=== PATIENT | female | born 2000 | race Caucasian/White ===

== ENCOUNTER → 2024-02-13 08:03 | Outpatient (BNVA) | payer OTHER, MEDICAID, SELFPAY | PROVIDERS: Visit Provider Nurse Practitioner Women's Health | DX: Z34.90 Encounter for supervision of normal pregnancy, unspecified, unspecified trimester | CPT/HCPCS: 81025; 84702; 86850; 86900 ==

== ENCOUNTER → 2024-02-25 14:00 | Outpatient (BNVA) | payer OTHER, MEDICAID, SELFPAY | PROVIDERS: Visit Provider Nurse Practitioner Women's Health | DX: Z34.90 Encounter for supervision of normal pregnancy, unspecified, unspecified trimester (principal) | CPT/HCPCS: 76801 ==

== ENCOUNTER 2024-07-23 15:23 | Oncology outpatient (recurring) (ONCR) | payer OTHER, MEDICAID, SELFPAY ==
[2024-07-23 15:45] VITALS: BP 121/82; PULSE 111; RESP 17; TEMP 36.9
[2024-07-23] MEDS: rho(d) immune globulin 1,500 unit Syringe 1500 UNIT IM (15:46)
== END 2024-07-26 23:59 | disposition home or self-care (01) ==
LOC: ONCMED 15:24
PROVIDERS: Visit Provider Family Medicine
DX: Z79.899 Other long term (current) drug therapy (principal); Z67.11 Type A blood, Rh negative
CPT/HCPCS: 96372; J2790

== ENCOUNTER 2024-10-10 14:19 | Inpatient (IN) | payer OTHER, MEDICAID, SELFPAY ==
[2024-10-10] VITALS (45 sets, daily range): BP systolic 133–184; BP diastolic 63–113; PULSE 83–112; RESP 16; TEMP 36.6–37.1; O2SAT 97–100; BMI 35.9
[2024-10-10] MEDS: sodium chloride 0.9% 1,000 ML 999 ML IV ×2 (10:28→10:52)
[2024-10-10 11:06] LABS: Basophils # 0.1 10^3/uL (0.0-0.1); Basophils % 0.4 %; Eosinophils # 0.3 10^3/uL (0.0-0.8); Eosinophils % 2.1 %; Hematocrit 35.2 % (36-47); Lymphocytes # 1.9 10^3/uL (0.8-4.8); Lymphocytes % 14.6 %; Mean Corpuscular HGB Conc 30.1 g/dL (30-55); Mean Corpuscular Volume 76.5 fl (85-98); Monocytes # 1.1 10^3/uL (0.2-0.9); Neutrophils # 9.75 10^3/uL (1.8-7.7); Neutrophils % 74.4 %; Nucleated Red Blood Cells % 0 %; Platelet Count 419 10^3/cmm (157-399)
[2024-10-10 11:13] LABS: Amphetamines Screen Urine Negative (Negative); Barbiturates Screen Urine Negative (Negative); Benzodiazepines Screen Urine Negative (Negative); Cocaine Screen Urine Negative (Negative); Opiate Screen Urine Negative (Negative); PCP Screen Urine Negative (Negative); THC Screen Urine Positive (Negative)
[2024-10-10] MEDS: ROPivacaine syringe 100 MG/50 ML SYRINGE 10 MG EPIDURAL (11:31)
[2024-10-10] MEDS: dextrose 5%-lactated ringers 1,000 ML 125 ML IV (11:31)
--- NOTE | 2024-10-10 11:53 | P.ANESASSM_ITS ---
Pre-Anesthetic Assessment Height/Weight: Height 5 ft 5 in Pulse BP Pulse Ox 92 138/79 99 10/10/24 11:52 10/10/24 11:52 10/10/24 11:42 Preop Diagnosis: Active labor Was Beta Anneliese taken within 24 hours: N/A Was Clonidine taken within 24 hours: N/A Social No alcohol and No tobacco Exam alert, oriented x 3, clear to auscultation bilaterally and regular rate & rhythm Airway Submandibular: within normal limits Cervical ROM: within normal limits Mallampati: Class II Dentition: full Anesthetic Plan ASA status: 2 Anesthesia: Regional (specify below) Other: G2, P1 here for active labor requesting an epidural No prior issues with or baby Patient states that she only takes a vitamin and some iron pills Labs reviewed acceptable for procedure today Discussed risks with epidural placement and patient would like to proceed with this at this time Medications/Allergies Home Medications ?Medication ?Instructions ?Recorded ?Confirmed ?Last Taken ?Type PNV 153-FA 400 mcg-om3 35 mg-dha tab PO DAILY 02/13/24 03/20/24 Unknown History 25 mg-epa 5 mg-fish oil chew tablet ( Gummies) ferrous sulfate 325 mg (65 mg 325 mg PO DAILY 02/13/24 03/20/24 Unknown History iron) tablet,delayed release metoclopramide HCl 5 mg tablet 5 mg PO DAILY #30 tabs 02/13/24 03/20/24 Unknown Rx (Reglan) Allergies Allergy/AdvReac Type Severity Reaction Status Date / Time No Known Allergies Allergy Unverified 03/20/24 13:13 Current Medications Generic Name Dose Route Start Last Admin Trade Name Jesus PRN Reason Stop Dose Admin Dextrose/Lactated Ringer's 1,000 mls @ 125 mls/hr 10/10/24 10:30 10/10/24 11:31 Dextrose 5%-Lactated Ringers IV 125 mls/hr .Q8H OG Administration Ropivacaine 100 mg in 50 mls @ 10 mls/hr 10/10/24 10:30 10/10/24 11:31 Naropin Syringe EPIDURAL 10 mls/hr .Q5H OG Administration Sodium Chloride 1,000 mls @ 999 mls/hr 10/10/24 10:20 10/10/24 10:52 Sodium Chloride 0.9% IV 999 mls/hr .Q1H1M PRN Administration See label comments PFSH Anesthesia Family History Denies family history of Colon cancer Ovarian cancer Prostate cancer Diabetes Heart disease Breast cancer Hypertension Uterine cancer Thyroid disease Stroke Data Anesthesia 10/10/24 10:20 Short CBC 10/10/24 Range/Units 10:20 WBC 13.10 H (3.29-11.43) 10^3/uL Hgb 10.60 L (11.27-16.99) g/dL Hct 35.2 L (36-47) % MCV 76.5 L (85-98) fl Plt Count 419 H (157-399) 10^3/cmm Neut % (Auto) 74.4 % Neut # (Auto) 9.75 H (1.8-7.7) 10^3/uL Blood Bank 10/10/24 10:20 Blood Type A Negative Rho(D) Type Rh negative Cardiac Studies: 2 No Data to Display
--- NOTE | 2024-10-10 11:54 | P.ANES_ITS ---
Anesthesia Procedures Procedure/Date: 10/10/24 Epidural: Time Out Performed: Yes Consents Signed: Procedure Consent Consent: requested by attending/covering physician and from patient Lumbar Level: L3-L4 Epidural position: sitting Epidural procedure: sterile prep of area, 1% lidocaine to numb the area, 18 g needle, negative for paresthesia p assed, neg for paresthesia, test dose given, 1.5% xylocaine 1:200k epi, 0.2% Ropivacaine bolus ml, placed PCEA, no systemic response, sterile dressing applied, L.U.D. no apparent complications and 0.2% Ropiavacaine @ mls/hr Additional Comments: Loss received at 9 cm, epidural catheter left at 15 cm to the skin. Ropivacaine 0.2% set at 12 mL/h
--- NOTE | 2024-10-10 12:16 | PM.OPHPUD ---
Labor & Delivery H&P Update Date of Procedure: October 10, 2024 Date H&P Performed: 10/06/24 Admission Diagnosis: IUP at 40w0d gestation in active labor Preop diagnosis: Active labor Planned procedure: Expectant management of labor and delivery
[2024-10-10] MEDS: lidocaine 2% INJ 20 mL INJECTION (14:19)
[2024-10-10] MEDS: oxytocin 30 UNIT/500 ML BAG 600 UNIT IV (14:20)
--- NOTE | 2024-10-10 14:36 | P.PCNOB_ITS ---
Delivery Note: Date of delivery: October 10, 2024 Procedure: Normal spontaneous vaginal delivery with moderate shoulder dystocia Delivering Physician: Bonnie Dave MD Estimated blood loss (mL): 300 Pre-Delivery Course: The patient had routine care at [facility]. labs: Blood type A-, antibody negative, hepatitis B nonreactive, hepatitis C nonreactive, HIV nonreactive, rubella immune, RPR nonreactive, UDS positive for marijuana, she passed her glucose tolerance test, she was GBS negative. Delivery: This is a 23-year-old G2, P1 at 40 weeks 0 days gestation who presented to labor and delivery in active labor. She was GBS negative. She received an epidural for pain management. When she was 9 cm dilated she underwent artificial rupture membranes with thick meconium. Despite receiving an epidural and anesthesia reevaluation, she was in significant pain during pushing. The 's head delivered but there was a turtling and a moderate shoulder dystocia that was relieved using Shannon maneuver. The infant was delivered with both a nuchal cord and body cord. He was stunned at delivery and the cord was immediately clamped and cut he was taken to the warmer for stimulation. Cord blood was obtained. The placenta was delivered grossly intact and normal to inspection. There was a partial third-degree laceration that was sutured using 3-0 Vicryl in an interrupted fashion. The second-degree laceration was then sutured using 3-0 chromic in a running fashion. Mother was doing well after delivery. The was taken to the nursery for CPAP. History History History 2 Term 1 0 Miscarriages/Ectopic 0 Living Children 1 A&P Assessment and plan (1) Normal spontaneous vaginal delivery: PDMP PDMP Reviewed: Not Reviewed Coding Level of Care Code Acute Code for Chg Fwd Diagnoses Normal spontaneous vaginal delivery O80
[2024-10-10] MEDS: ibuprofen 800 mg tablet PO (20:17)
[2024-10-10] MEDS: docusate sodium 100 mg Capsule PO (20:17)
[2024-10-10] MEDS: benzocaine-menthol 78 gm Canister 1 SPRAY TOPICAL (20:18)
[2024-10-11 00:08] VITALS: BP 130/69; PULSE 89; RESP 16; TEMP 36.8; O2SAT 96
[2024-10-11 02:28] LABS: Hematocrit 26.5 % (36-47); Mean Corpuscular HGB Conc 30.6 g/dL (30-55); Mean Corpuscular Hemoglobin 23.2 pg (27-33); Mean Corpuscular Volume 75.9 fl (85-98); Mean Platelet Volume 10.6 fL (7.4-10.4); Platelet Count 312 10^3/cmm (157-399); Red Blood Count 3.49 10^6/uL (3.85-5.65); Red Cell Distribution Width 14.1 % (12.1-15.1); White Blood Count 12.66 10^3/uL (3.29-11.43)
[2024-10-11 02:51] LABS: HIV 1 & 2 Antibody Non-Reactive (Non-Reactiv); HIV 1 & 2 Antigen Non-Reactive (Non-Reactiv)
[2024-10-11 04:21] VITALS: BP 107/67; PULSE 82; RESP 16; TEMP 37; O2SAT 98
[2024-10-11] MEDS: ibuprofen 800 mg tablet PO (09:30)
[2024-10-11] MEDS: PRENATAL VIT NO.130/IRON/FOLIC 1 EACH TABLET PO (09:30)
[2024-10-11] MEDS: docusate sodium 100 mg Capsule PO (09:30)
[2024-10-11 09:32] VITALS: BP 135/84; PULSE 93; RESP 17; TEMP 36.6; O2SAT 98
--- NOTE | 2024-10-11 10:26 | ANE.PACU2 ---
Inpatient post-anesthesia follow up: Airway intact: Yes Vital signs: Temperature 97.8 F Pulse Rate 93 Respiratory Rate 17 Blood Pressure 135/84 Pulse Oximetry 98 Oxygen Delivery Me thod Room Air Oxygen Flow Rate Fraction of Inspir ed Oxygen Hydration adequate: Yes Nausea and vomiting: No Pain level: 1 Mental status: Baseline Epidural Start/End: Epidural Start Date: 10/10/24 Epidural Start Time: 11:30 Epidural End Date: 10/10/24 Epidural End Time: 17:45
--- NOTE | 2024-10-11 11:59 | P.DS_ITS ---
Discharge Providers Date of Admission: 10/10/24 14:19 Date of Discharge: October 11, 2024 Attending Provider at Admission: Bonnie Dave MD Attending Provider at Discharge: Bonnie Dave MD Diagnoses at Discharge Discharge Diagnosis (1) Normal spontaneous vaginal delivery: Status: Acute Reason for Visit Reason for Visit: ctx Hospital Course Hospital Course This is a 23-year-old G2 now P2 who was admitted in active labor at 40 weeks 0 days gestation. She had a normal spontaneous vaginal delivery of a viable male . The had respiratory insufficiency at and was transferred to [facility]. Mother did well . She was ambulating, tolerating a regular diet, had decreased vaginal bleeding and was comfortable with discharge home. Physical Exam Narrative: Sitting up in bed eating lunch, heart regular rate and rhythm, lungs clear to auscultation bilaterally, abdomen is soft and nontender but fundus is firm and U- 2, extremities have 1+ edema but no calf tenderness Discharge Data Studies Completed and Pending Laboratory Results WBC 12.66 10^3/uL (3.29-11.43) H 10/11/24 02:14 RBC 3.49 10^6/uL (3.85-5.65) L 10/11/24 02:14 Hgb 8.10 g/dL (11.27-16.99) L 10/11/24 02:14 Hct 26.5 % (36-47) L 10/11/24 02:14 MCV 75.9 fl (85-98) L 10/11/24 02:14 MCH 23.2 pg (27-33) L 10/11/24 02:14 MCHC 30.6 g/dL (30-55) 10/11/24 02:14 RDW 14.1 % (12.1-15.1) 10/11/24 02:14 Plt Count 312 10^3/cmm (157-399) 10/11/24 02:14 MPV 10.6 fL (7.4-10.4) H 10/11/24 02:14 Neut % (Auto) 74.4 % 10/10/24 10:20 Lymph % (Auto) 14.6 % 10/10/24 10:20 Clay % (Auto) 8.0 % 10/10/24 10:20 Eos % (Auto) 2.1 % 10/10/24 10:20 Baso % (Auto) 0.4 % 10/10/24 10:20 Neut # (Auto) 9.75 10^3/uL (1.8-7.7) H 10/10/24 10:20 Lymph # (Auto) 1.9 10^3/uL (0.8-4.8) 10/10/24 10:20 Clay # (Auto) 1.1 10^3/uL (0.2-0.9) H 10/10/24 10:20 Eos # (Auto) 0.3 10^3/uL (0.0-0.8) 10/10/24 10:20 Baso # (Auto) 0.1 10^3/uL (0.0-0.1) 10/10/24 10:20 Nucleated RBC % (auto) 0 % 10/10/24 10:20 Nucleated RBCs # 0.0 /100WBC 10/10/24 10:20 Urine Opiates Screen Negative ng/mL (Negative) 10/10/24 10:30 Ur Barbiturates Screen Negative ng/mL (Negative) 10/10/24 10:30 Ur Phencyclidine Scrn Negative ng/mL (Negative) 10/10/24 10:30 Ur Amphetamines Screen Negative ng/mL (Negative) 10/10/24 10:30 U Benzodiazepines Scrn Negative ng/mL (Negative) 10/10/24 10:30 Urine Cocaine Screen Negative ng/mL (Negative) 10/10/24 10:30 U Marijuana (THC) Screen Positive ng/mL (Negative) H 10/10/24 10:30 HIV 1&2 Ab & HIV 1 Ag Non-reactive (Non-Reactiv) 10/11/24 02:14 HIV 1&2 Antibody Non-reactive (Non-Reactiv) 10/11/24 02:14 Blood Type A Negative 10/10/24 10:20 Rho(D) Type Rh negative 10/10/24 10:20 Antibody Screen Negative 10/10/24 10:20 Vitals Last Vital Signs Temp 97.8 F 10/11/24 09:32 Pulse 93 10/11/24 09:32 Resp 17 10/11/24 09:32 BP 135/84 10/11/24 09:32 Pulse Ox 98 10/11/24 09:32 O2 Del Method Room Air 10/11/24 09:32 Discharge Plan Discharge Patient Disposition: Home Condition: Stable Prescriptions: Continued Gummies 400 mcg-35 mg- 25 mg-5 mg tablet,chewable PO DAILY ferrous sulfate 325 mg (65 mg iron) tablet,delayed release (DR/EC) 325 mg PO DAILY Discontinued metoclopramide HCl [Reglan] 5 mg tablet 5 mg PO DAILY Qty: 30 2RF Discharge Orders: Discharge Order (Routine); Ordered 10/11/24 Ordered By: Bonnie Dave Referrals: Bonnie Dave MD [Physician] - 1 month Discharge Diet: Usual diet Discharge Activity: Limit activity as instructed Patient Instructions: Depression (DC), Opioid Safety (DC), Preeclampsia and Eclampsia After Delivery (GEN), Hemorrhage (DC), OB Discharge Report, OB Food/Drug Interaction Guide, OB Care at Home, Opioid Safety, OB Vaginal Deliveries, Abnormal Bleeding Activity Restrictions/Additional Instructions: Nothing per vagina for 6 weeks Discharge Attestations Time Spent in Discharge Care*: less than 30 min Quality Metrics Clinical Quality Measures [ No reported AMI, CVA or VTE this stay] Coding Level of Care Code Acute Code for Chg Fwd Diagnoses Normal spontaneous vaginal delivery O80
[2024-10-11 12:27] VITALS: BP 132/84; PULSE 99; RESP 17; TEMP 36.7; O2SAT 98
[2024-10-11 12:44] VITALS: BP 132/84; PULSE 99; RESP 17; TEMP 36.7; O2SAT 98
== END 2024-10-11 12:44 | disposition home or self-care (01) | DRG 806 ==
LOC: OPOB 14:19 → OBGYN 14:19
PROVIDERS: Admitting Provider Family Medicine; Visit Provider Family Medicine
DX: O66.0 Obstructed labor due to shoulder dystocia (principal); O99.324 Drug use complicating childbirth; Z37.0 Single live birth; F12.90 Cannabis use, unspecified, uncomplicated; O77.0 Labor and delivery complicated by meconium in amniotic fluid; O69.81X0 Labor and delivery complicated by cord around neck, without compression, not applicable or unspecified; O70.1 Second degree perineal laceration during delivery; Z3A.40 40 weeks gestation of pregnancy
CPT/HCPCS: 36415; 59025; 59409; 80306; 85025; 85027; 86850; 86900; 87806; 96374; 99211; J2590; J2795; J3010; J7030; J7121

== ENCOUNTER 2025-04-14 00:34 | Inpatient (IN) | payer MEDICAID, SELFPAY ==
[2025-04-14] VITALS (7 sets, daily range): BP systolic 99–120; BP diastolic 59–74; PULSE 83–97; RESP 15–18; TEMP 36.9–37; O2SAT 95–100; BMI 29.0
--- NOTE | 2025-04-14 00:44 | CTR_ITS ---
PROCEDURE INFORMATION: Exam: CT Head Without Contrast Exam date and time: 04/14/2025 1:47 AM Age: 24 years old Clinical indication: Altered mental status/memory loss; Confusion or disorientation; Additional info: AMS TECHNIQUE: Imaging protocol: Computed tomography of the head without contrast. Radiation optimization: All CT scans at this facility use at least one of these dose optimization techniques: automated exposure control; mA and/or kV adjustment per patient size (includes targeted exams where dose is matched to clinical indication); or iterative reconstruction. COMPARISON: No relevant prior studies available. RADIATION DOSE METRICS: Total DLP (mGy-cm): 960.35 FINDINGS: Brain: No acute infarction, hemorrhage, mass, or extra-axial fluid collection is identified. No midline shift. Cerebral ventricles: No hydrocephalus. Paranasal sinuses: Paranasal sinuses are grossly clear. Mastoid air cells: Mastoid air cells are grossly clear. Bones: Calvarium appears intact. Soft tissues: Unremarkable. CT/CT head wo con* [id number] IMPRESSION: No acute intracranial abnormality.
--- OUTSIDE RECORDS SUMMARY | 2025-04-14 00:44 | XMS_ITS | Clinical Summary ---
Author Organization [facility] Address [address] [place] [address] Phone Care Team Providers Care Cider Press Operator Name Role Phone Unavailable Primary Care Provider Unavailabl e Allergies No known active allergies Medications vitamin-iron fumarate-folic acid 27 mg-0.8 mg Tablet Take 1 Tablet by mouth daily. Active ferrous sulfate 325 mg (65 mg iron) tablet Take 325 mg by mouth daily. Active Active Problems Problem Noted Date Diagnosed Date Diet controlled gestational diabetes mellitus (GDM) in third trimester 01/05/2023 39 weeks gestation of 01/05/2023 Vaginal delivery 01/05/2023 Encounter for induction of labor 01/05/2023 Rh negative status during in third tri mester 01/05/2023 Late care in second trimester 3 Immunizations Immunization Administration Dates Next Due (PREVNAR 20)(6 WKS UP) PNEUM OCOCCAL CONJUGATE VACCINE 20-VALENT (PCV20), POLYSACCHARIDE [id number] CONJUGATE, ADJUVANT 0.5 ML (PF) IM 01/06/2023 Influenza Seasonal Unspecified Formulation IM Family History Medical History Relation Name Comments Breast Cancer Maternal Grandmother Breast Cancer Mother Hypertension Mother Relation Name Status Comments Maternal Grandmother Mother Social History Tobacco Use Types Packs/Day Years Used Date Smoking Tobacco: Former Cigarettes Smokeless Tobacco: Never Tobacco Cessation:Counseling Given: Not Answered Alcohol Use Standard Drinks/Week Comments Yes 0 (1 standard drink = 0.6 oz pur e alcohol) occasional Comments No Sex and Gender Information Value Date Recorded Sex Assigned at Not on file Legal Sex Female 4:17 PM CDT Gender Identity Not on file Sexual Orientation Not on file Last Filed Vital Signs Vital Sign Reading Time Taken Comments Blood Pressure 117/72 05/08/2023 6:51 PM CDT Pulse 80 05/08/2023 6:51 PM CDT Temperature 36 C (96.8 F) 05/08/2023 6:51 PM CDT Respiratory Rate 20 05/08/2023 6:51 PM CDT Oxygen Saturation 99% 05/08/2023 6:51 PM CDT Inhaled Oxygen Concentration - - Weight 82.1 kg (181 lb) 05/08/2023 6:13 PM CDT Height 165.1 cm (5' 5 ) 05/08/2023 6:13 PM CDT Body Mass Index 30.12 05/08/2023 6:13 PM CDT Plan of Treatment Health Maintenance Due Date Last Done Comments HPV VACCINES (1 - 3-dose series) 2017 HEPATITIS B VACCINES (1 of 3 - 19+ 3-dose series) 2021 CHLAMYDIA SCREENING (ANNUAL) 11-24 YEARS 08/15/2023 08/15/2022 CERVICAL CANCER SCREENING 11/19/2023 HPV/Cotest (21-29) 11/19/2023 PAP SMEAR 11/19/2023 INFLUENZA VACCINE (#1) 2025 08/15/2022, 2021 DTAP/TDAP/TD VACCINES (2 - Td or Tdap) 10/20/2032 Procedures Procedure Name Priority Date/Time Associated Diagnosis Comments GC/CHLAMYDIA, GENITAL Routine 08/15/2022 from Last 3 Months or Most Recently Relevant to Health Maintenance Results * GC/CHLAMYDIA, GENITAL (08/15/2022) ABSTRACTED CHLAMYDIA DNA AMP NOT DETECTED EXTERNAL LAB ABSTRACTED GC DNA AMPLIFICATION NOT DETECTED EXTERNAL LAB Genital SWAB OF ENDOCERVIX / Unknown us Historical Provider MICRO - GEN ORDERABLES COM F inal Result EXTERNAL LAB from Last 3 Months or Most Recently Relevant to Health Maintenance Insurance [address] [id number] [facility] [employer] [facility] MEDICAID Advance Directives For more information, please contact: [phone] * Full Code (Latest Code Status on File) Date Activated Date Inactivated Comments 01/05/2023 7:05 PM 01/06/2023 8:10 PM * Full Code Date Activated Date Inactivated Comments 01/04/2023 10:11 PM 01/05/2023 7:04 PM
--- OUTSIDE RECORDS SUMMARY | 2025-04-14 00:44 | XMS_ITS | Encounter Summary ---
Author Organization [facility] Address [address] [place] [address] Care Team Providers Care Radiation Engineer Name Role Phone Unavailable Primary Care Provider Unavailabl e Encounter Details Date Type Department Care Team (Late st Contact Info) Description 10/11/2024 Maternal Documentation [facility] 5 Intensive Care [address] [place] [id number] Alexus Solomon RN Social History Tobacco Use Types Packs/Day Years Used Date Smoking Tobacco: Former Cigarettes Smokeless Tobacco: Never Alcohol Use Standard Drinks/Week Comments Yes 0 (1 standard drink = 0.6 oz pur e alcohol) occasional Comments No Sex and Gender Information Value Date Recorded Sex Assigned at Not on file Legal Sex Female 4:17 PM CDT Gender Identity Not on file Sexual Orientation Not on file documented as of this encounter Plan of Treatment Not on file documented as of this encounter Visit Diagnoses Not on filedocumented in this encounter
--- NOTE | 2025-04-14 01:24 | W.ED.PSYCHS ---
Documented by User: Yunior Ford MD 04/14/25 05:58 HPI - Psych General: Chief Complaint: Psychiatric Symptoms Stated Complaint: si Time Seen by Provider: 04/14/25 00:40 History of Present Illness: Patient is brought in by EMS with concerns for meth overdose. The patient apparently was found amidst a broken porcelain toilet and admitted to using meth. She states that people are after her and she is trying to protect herself. She became very combative and route and required Haldol and Versed. Upon arrival here she is very sleepy. She does answer some questions but still endorses the notion that people are after her and trying to kill her. She has numerous lacerations on her hands, legs, feet. Most of them are superficial. She has a full-thickness laceration between her right 4th and 5th toes, she has a 4.5 cm laceration of her left anterior lower leg, she also has multiple small lacerations on the left foot. She allowed me to anesthetize, and start to repair the wound on the left leg but then became combative and did not want me to repair them. I was able to place giuliano instead of sutures as it was quick enough to close the wound. She then would not allow me to repair any of the other wounds including the one between her toes on her right foot. Will wrap them after cleaning them well and reassess when she is sober. Will check labs, await sobriety, and reassess. Related Data Home Medications ?Medication ?Instructions ?Recorded ?Confirmed No Known Home Medications 04/14/25 04/14/25 Allergies Allergy/AdvReac Type Severity Reaction Status Date / Time No Known Allergies Allergy Unverified 03/20/24 13:13 Review of Systems General: Reports: ROS unobtainable due to mental status PFSH ED PFSH: Family History Denies family history of Colon cancer Ovarian cancer Prostate cancer Diabetes Heart disease Breast cancer Hypertension Uterine cancer Thyroid disease Stroke Physical Exam HENMT: COMMON NORMALS: normocephalic and atraumatic HEAD & SCALP: normocephalic and atraumatic Eye: COMMON NORMALS: Equal, round and reactive pupils present and EOMs intact bilaterally PUPIL: Yes Equal, round and reactive pupils present Neck/C-Spine: COMMON NORMALS: full ROM and supple Resp: COMMON NORMALS: normal respiratory effort, No retractions and No use of accessory muscles Cardio: COMMON NORMALS: regular rate and regular rhythm RATE: regular rate RHYTHM: regular rhythm GI: COMMON NORMALS: Normal to inspection, nondistended, normoactive bowel sounds present, Soft to palpation and non-tender PALPATION: Yes Soft to palpation Extremity: OTHER: numerous lacerations on her hands, legs, feet. Most of them are superficial. She has a full-thickness laceration between her right 4th and 5th toes, she has a 4.5 cm laceration of her left anterior lower leg, she also has multiple small lacerations on the left foot. Psych: OTHER: Paranoid Procedures Laceration Laceration 1: Site: lower extremity Side (If applicable): left Size (cm): 4.5 Description: linear Depth: simple, single layer Local Anesthetic: lidocaine 1% Amount of anesthesia used (mL): 10 Pre-repair: wound explored and irrigated extensively Skin layer closed with: other (14 giuliano) Course Vital Signs: Vital signs: Vital Signs Temperature 98.4 F 04/14/25 00:45 Pulse Rate 89 04/14/25 06:00 Respiratory Rate 15 04/14/25 06:00 Blood Pressure 112/68 04/14/25 06:00 Pulse Oximetry 99 04/14/25 06:00 Oxygen Delivery Me thod Room Air 04/14/25 05:00 [facility] - Psych Medical Decision Making On reassessment the patient appears to be a little more sober. She continues to have paranoid thoughts stating that she thinks she is homeless now and cannot go home because her family was abducted. She states that she knows it just feels real to her. I talked with her about her foot x-ray which interpreted by me shows a right fifth proximal phalanx fracture. We discussed the laceration between her toes and she still does not want me to repair it. Will allow her to sober up completely and reevaluate. Will sign out to the oncoming physician to consult psychiatry if she continues to be paranoid. She admits to using methamphetamine. Lab Data 04/14/25 01:27 04/14/25 01:[address] 04/14/25 00:44 IMPRESSION: No acute intracranial abnormality. Foot X-Ray 04/14/25 01:36 IMPRESSION: Acute mildly displaced proximal 5th phalanx fracture. Laboratory Results WBC 16.85 10^3/uL (3.29-11.43) H 04/14/25 01:27 RBC 4.98 10^6/uL (3.85-5.65) 04/14/25 01:27 Hgb 12.20 g/dL (11.27-16.99) 04/14/25 01:27 Hct 38.9 % (36-47) 04/14/25 01:27 MCV 78.1 fl (85-98) L 04/14/25 01:27 MCH 24.5 pg (27-33) L 04/14/25 01:27 MCHC 31.4 g/dL (30-55) 04/14/25 01:27 RDW 15.4 % (12.1-15.1) H 04/14/25 01:27 Plt Count 380 10^3/cmm (157-399) 04/14/25 01:27 MPV 9.0 fL (7.4-10.4) 04/14/25 01:27 Neut % (Auto) 85.0 % 04/14/25 01:27 Lymph % (Auto) 7.8 % 04/14/25 01:27 [place] % (Auto) 6.6 % 04/14/25 01:27 Eos % (Auto) 0.0 % 04/14/25 01:27 Baso % (Auto) 0.2 % 04/14/25 01:27 Neut # (Auto) 14.33 10^3/uL (1.8-7.7) H 04/14/25 01:27 Lymph # (Auto) 1.3 10^3/uL (0.8-4.8) 04/14/25 01:27 [place] # (Auto) 1.1 10^3/uL (0.2-0.9) H 04/14/25 01:27 Eos # (Auto) 0.0 10^3/uL (0.0-0.8) 04/14/25 01:27 Baso # (Auto) 0.0 10^3/uL (0.0-0.1) 04/14/25 01:27 Nucleated RBC % (auto) 0 % 04/14/25 01:27 Nucleated RBCs # 0.0 /100WBC 04/14/25 01:27 Sodium 140 mmol/L (136-145) 04/14/25 01:27 Potassium 3.1 mmol/L (3.5-5.1) L 04/14/25 01:27 Chloride 105 mmol/L (98-107) 04/14/25 01:27 Carbon Dioxide 19 mmol/L (22-29) L 04/14/25 01:27 Anion Gap 19.1 (5-19) H 04/14/25 01:27 BUN 17 mg/dL (6-20) 04/14/25 01:27 Creatinine 1.0 mg/dL (0.5-0.9) H 04/14/25 01:27 GFR Calculation 69.3 mL/min (90-130) L 04/14/25 01:27 Glucose 81 mg/dL (65-115) 04/14/25 01:27 Calculated Osmolality 291 mOsm/kg (285-295) 04/14/25 01:27 Calcium 9.9 mg/dL (8.5-10.5) 04/14/25 01:27 Total Bilirubin 0.7 mg/dL (0.15-1.2) 04/14/25 01:27 AST 22 U/L (0-32) 04/14/25 01:27 ALT 22 U/L (0-33) 04/14/25 01:27 Alkaline Phosphatase 149 U/L (35-105) H 04/14/25 01:27 Total Protein 8.4 g/dL (6.6-8.7) 04/14/25 01:27 Albumin 4.6 g/dL (3.5-5.2) 04/14/25 01:27 Globulin 3.8 g/dL (1.3-4.6) 04/14/25 01:27 HCG, Qual Negative (Negative) 04/14/25 01:27 Urine Color Dark yellow (Yellow) A 04/14/25 09: Urine Appearance Clear (CLEAR) 04/14/25 09: Urine pH 5.0 (5-7) 04/14/25 09:29 Ur Specific Roulette 1.031 (1.005-1.030) H 04/14/25 09: Urine Protein 1+ (Negative) A 04/14/25 09:29 Urine Glucose (UA) Negative (Normal) 04/14/25 09:29 Urine Ketones 3+ (Negative) H 04/14/25 09:29 Urine Blood Negative (Negative) 04/14/25 09:29 Urine Nitrate Negative (Negative) 04/14/25 09:29 Urine Bilirubin Negative (Negative) 04/14/25 09:29 Urine Urobilinogen 1.0 mg/dL (Negative) 04/14/25 09:29 Ur Leukocyte Esterase Negative (Negative) 04/14/25 09:29 Urine RBC 0-4 /hpf (0-2) H 04/14/25 09:29 Urine WBC 0-4 /hpf (0-5) H 04/14/25 09:29 Ur Squamous Epith Cells None /hpf (0-5) 04/14/25 09:29 Amorphous Sediment Not Reportable 04/14/25 09:29 Urine Bacteria Trace /hpf (NONE) 04/14/25 09:29 Hyaline Casts 0-4 /lpf H 04/14/25 09:29 Fine Granular Casts 0-4 /lpf H 04/14/25 09:29 Urine Mucus 2+ /hpf 04/14/25 09:29 Salicylates < 0.3 mg/dL (3-10) L 04/14/25 01:27 Urine Opiates Screen Negative ng/mL (Negative) 04/14/25 09:29 Acetaminophen < 5.0 ug/mL (10-30) L 04/14/25 01:27 Ur Barbiturates Screen Negative ng/mL (Negative) 04/14/25 09:29 Ur Phencyclidine Scrn Negative ng/mL (Negative) 04/14/25 09:29 Ur Amphetamines Screen Positive ng/mL (Negative) H 04/14/25 09:29 U Benzodiazepines Scrn Negative ng/mL (Negative) 04/14/25 09:29 Urine Cocaine Screen Negative ng/mL (Negative) 04/14/25 09:29 U Marijuana (THC) Screen Positive ng/mL (Negative) H 04/14/25 09:29 Ethyl Alcohol < 10 mg/dL (0-10) 04/14/25 01:27 Influenza A (PCR) Negative (Negative) 04/14/25 09:29 Influenza Type B (PCR) Negative (Negative) 04/14/25 09:29 RSV (PCR) Negative (Negative) 04/14/25 09:29 SARS-CoV-2 (PCR) Negative (Negative) 04/14/25 09:29 All radiology interpretation(s) finalized by discharge Discharge Plan Discharge Patient Disposition: Admitted As Inpatient Admit Provider: Riaz Rodriguez Clinical Impression: Acute psychosis, Drug-induced psychotic disorder, Methamphetamine use, Multiple lacerations, Fracture of toe of right foot Condition: Stable Sign Out Sign Out Data: Patient Sign Out occurred on 04/14/25 at 06:15. Patient's care was discussed, and care was transferred from Yunior Ford MD to Ash Tinajero DO. Coding Level of Care Code ED Donkey Ride Operator for Chg Fwd Documented by User: Ash Tinajero DO 04/14/25 16:49 HPI - Psych General: Chief Complaint: Psychiatric Symptoms Stated Complaint: si Time Seen by Provider: 04/14/25 00:40 Related Data Home Medications ?Medication ?Instructions ?Recorded ?Confirmed No Known Home Medications 04/14/25 04/14/25 Allergies Allergy/AdvReac Type Severity Reaction Status Date / Time No Known Allergies Allergy Unverified 03/20/24 13:13 PFS ED PFSH: Family History Denies family history of Colon cancer Ovarian cancer Prostate cancer Diabetes Heart disease Breast cancer Hypertension Uterine cancer Thyroid disease Stroke Course Vital Signs: Vital signs: Vital Signs Temperature 98.4 F 04/14/25 00:45 Pulse Rate 89 04/14/25 06:00 Respiratory Rate 15 04/14/25 06:00 Blood Pressure 112/68 04/14/25 06:00 Pulse Oximetry 99 04/14/25 06:00 Oxygen Delivery Me thod Room Air 04/14/25 05:00 MDM - Psych Medical Decision Making On reassessment the patient appears to be a little more sober. She continues to have paranoid thoughts stating that she thinks she is homeless now and cannot go home because her family was abducted. She states that she knows it just feels real to her. I talked with her about her foot x-ray which interpreted by me shows a right fifth proximal phalanx fracture. We discussed the laceration between her toes and she still does not want me to repair it. Will allow her to sober up completely and reevaluate. Will sign out to the oncoming physician to consult psychiatry if she continues to be paranoid. She admits to using methamphetamine. Care assumed at change of shift. Patient admits to using methamphetamine she makes comment about having been using for 5 days in a row. Reviewing the chart and noted that in September of this year she delivered a baby at our facility. I inquired with the patient she states she still has custody of the baby and is the main caregiver. She is still paranoid. She still makes comment about someone's coming after family she is convinced that if she leaves here and goes home she will go back to doing drugs in the same things will happen again. She still believes her family was abducted. There is no other family members available at this time to verify. Will make a child protective services hotline report through nursing staff regarding her drug use and her being the main caregiver. Patient be placed on a 96-hour hold due to acute psychosis secondary to drug use. Discussed Dr. Rodriguez orders written. After I talk to Dr. Rodriguez we were informed that there were no available beds that are unit Dr. Rodriguez was unaware that they were. We spoke the neck several hours trying to find an appropriate facility to transfer the patient. Later a unexpected discharge occurred and we do not have available beds. Patient will be admitted to our facility. Lab Data 04/14/25 01:27 04/14/25 01:[address] 04/14/25 00:44 IMPRESSION: No acute intracranial abnormality. Foot X-Ray 04/14/25 01:36 IMPRESSION: Acute mildly displaced proximal 5th phalanx fracture. Laboratory Results WBC 16.85 10^3/uL (3.29-11.43) H 04/14/25 01:27 RBC 4.98 10^6/uL (3.85-5.65) 04/14/25 01:27 Hgb 12.20 g/dL (11.27-16.99) 04/14/25 01:27 Hct 38.9 % (36-47) 04/14/25 01:27 MCV 78.1 fl (85-98) L 04/14/25 01:27 MCH 24.5 pg (27-33) L 04/14/25 01:27 MCHC 31.4 g/dL (30-55) 04/14/25 01:27 RDW 15.4 % (12.1-15.1) H 04/14/25 01:27 Plt Count 380 10^3/cmm (157-399) 04/14/25 01:27 MPV 9.0 fL (7.4-10.4) 04/14/25 01:27 Neut % (Auto) 85.0 % 04/14/25 01:27 Lymph % (Auto) 7.8 % 04/14/25 01:27 Providence % (Auto) 6.6 % 04/14/25 01:27 Eos % (Auto) 0.0 % 04/14/25 01:27 Baso % (Auto) 0.2 % 04/14/25 01:27 Neut # (Auto) 14.33 10^3/uL (1.8-7.7) H 04/14/25 01:27 Lymph # (Auto) 1.3 10^3/uL (0.8-4.8) 04/14/25 01:27 Providence # (Auto) 1.1 10^3/uL (0.2-0.9) H 04/14/25 01:27 Eos # (Auto) 0.0 10^3/uL (0.0-0.8) 04/14/25 01:27 Baso # (Auto) 0.0 10^3/uL (0.0-0.1) 04/14/25 01:27 Nucleated RBC % (auto) 0 % 04/14/25 01:27 Nucleated RBCs # 0.0 /100WBC 04/14/25 01:27 Sodium 140 mmol/L (136-145) 04/14/25 01:27 Potassium 3.1 mmol/L (3.5-5.1) L 04/14/25 01:27 Chloride 105 mmol/L (98-107) 04/14/25 01:27 Carbon Dioxide 19 mmol/L (22-29) L 04/14/25 01:27 Anion Gap 19.1 (5-19) H 04/14/25 01:27 BUN 17 mg/dL (6-20) 04/14/25 01:27 Creatinine 1.0 mg/dL (0.5-0.9) H 04/14/25 01:27 GFR Calculation 69.3 mL/min (90-130) L 04/14/25 01:27 Glucose 81 mg/dL (65-115) 04/14/25 01:27 Calculated Osmolality 291 mOsm/kg (285-295) 04/14/25 01:27 Calcium 9.9 mg/dL (8.5-10.5) 04/14/25 01:27 Total Bilirubin 0.7 mg/dL (0.15-1.2) 04/14/25 01:27 AST 22 U/L (0-32) 04/14/25 01:27 ALT 22 U/L (0-33) 04/14/25 01:27 Alkaline Phosphatase 149 U/L (35-105) H 04/14/25 01:27 Total Protein 8.4 g/dL (6.6-8.7) 04/14/25 01:27 Albumin 4.6 g/dL (3.5-5.2) 04/14/25 01:27 Globulin 3.8 g/dL (1.3-4.6) 04/14/25 01:27 HCG, Qual Negative (Negative) 04/14/25 01: Urine Color Dark yellow (Yellow) A 04/14/25 09: Urine Appearance Clear (CLEAR) 04/14/25 09: Urine pH 5.0 (5-7) 04/14/25 09: Ur Specific Roulette 1.031 (1.005-1.030) H 04/14/25 09:29 Urine Protein 1+ (Negative) A 04/14/25 09: Urine Glucose (UA) Negative (Normal) 04/14/25 09: Urine Ketones 3+ (Negative) H 04/14/25 09: Urine Blood Negative (Negative) 04/14/25 09: Urine Nitrate Negative (Negative) 04/14/25 09: Urine Bilirubin Negative (Negative) 04/14/25 09: Urine Urobilinogen 1.0 mg/dL (Negative) 04/14/25 09:29 Ur Leukocyte Esterase Negative (Negative) 04/14/25 09:29 Urine RBC 0-4 /hpf (0-2) H 04/14/25 09:29 Urine WBC 0-4 /hpf (0-5) H 04/14/25 09:29 Ur Squamous Epith Cells None /hpf (0-5) 04/14/25 09:29 Amorphous Sediment Not Reportable 04/14/25 09:29 Urine Bacteria Trace /hpf (NONE) 04/14/25 09:29 Hyaline Casts 0-4 /lpf H 04/14/25 09:29 Fine Granular Casts 0-4 /lpf H 04/14/25 09:29 Urine Mucus 2+ /hpf 04/14/25 09:29 Salicylates < 0.3 mg/dL (3-10) L 04/14/25 01:27 Urine Opiates Screen Negative ng/mL (Negative) 04/14/25 09:29 Acetaminophen < 5.0 ug/mL (10-30) L 04/14/25 01:27 Ur Barbiturates Screen Negative ng/mL (Negative) 04/14/25 09:29 Ur Phencyclidine Scrn Negative ng/mL (Negative) 04/14/25 09:29 Ur Amphetamines Screen Positive ng/mL (Negative) H 04/14/25 09:29 U Benzodiazepines Scrn Negative ng/mL (Negative) 04/14/25 09:29 Urine Cocaine Screen Negative ng/mL (Negative) 04/14/25 09:29 U Marijuana (THC) Screen Positive ng/mL (Negative) H 04/14/25 09:29 Ethyl Alcohol < 10 mg/dL (0-10) 04/14/25 01:27 Influenza A (PCR) Negative (Negative) 04/14/25 09:29 Influenza Type B (PCR) Negative (Negative) 04/14/25 09:29 RSV (PCR) Negative (Negative) 04/14/25 09:29 SARS-CoV-2 (PCR) Negative (Negative) 04/14/25 09:29 Discharge Plan Discharge Patient Disposition: Admitted As Inpatient Admit Provider: Riaz Rodriguez Clinical Impression: Acute psychosis, Drug-induced psychotic disorder, Methamphetamine use, Multiple lacerations, Fracture of toe of right foot Condition: Stable Sign Out Sign Out Data: Patient Sign Out occurred on 04/14/25 at 06:15. Patient's care was discussed, and care was transferred from Yunior Ford MD to Ash Tinajero DO. Coding Level of Care Code ED Donkey Ride Operator for Lexie Victoria
[2025-04-14 01:33] LABS: Hematocrit 38.9 % (36-47); Hemoglobin 12.20 g/dL (11.27-16.99); Mean Corpuscular HGB Conc 31.4 g/dL (30-55); Mean Corpuscular Hemoglobin 24.5 pg (27-33); Mean Corpuscular Volume 78.1 fl (85-98); Nucleated Red Blood Cells % 0 %; Platelet Count 380 10^3/cmm (157-399); Red Blood Count 4.98 10^6/uL (3.85-5.65); White Blood Count 16.85 10^3/uL (3.29-11.43)
--- NOTE | 2025-04-14 01:36 | XRR_ITS ---
PROCEDURE INFORMATION: Exam: XR Right Foot Exam date and time: 04/14/2025 1:39 AM Age: 24 years old Clinical indication: Injury or trauma; Fall; Blunt trauma; Foot; Right; Additional info: Trauma, uknown origin TECHNIQUE: Imaging protocol: Radiologic exam of the right foot. Views: 3 or more views. COMPARISON: No relevant prior studies available. FINDINGS: Bones/joints: Acute, mildly displaced fracture of the proximal metaphysis of the proximal phalanx of the 5th toe. No other fractures are apparent. Soft tissues: Mild soft tissue fullness about the forefoot. XR/XR foot RT min 3V* [id number] IMPRESSION: Acute mildly displaced proximal 5th phalanx fracture.
[2025-04-14 01:50] LABS: Alanine Aminotransferase 22 U/L (0-33); Albumin Level 4.6 g/dL (3.5-5.2); Alkaline Phosphatase 149 U/L (35-105); Anion Gap 19.1 (5-19); Aspartate Amino Transferase 22 U/L (0-32); Blood Urea Nitrogen 17 mg/dL (6-20); Calcium 9.9 mg/dL (8.5-10.5); Carbon Dioxide 19 mmol/L (22-29); Chloride 105 mmol/L (98-107); Globulin 3.8 g/dL (1.3-4.6); Glucose 81 mg/dL (65-115); Osmolality Calculated 291 mOsm/kg (285-295); Potassium 3.1 mmol/L (3.5-5.1); Sodium 140 mmol/L (136-145); Total Protein 8.4 g/dL (6.6-8.7)
[2025-04-14 01:55] LABS: Acetaminophen < 5.0 ug/mL (10-30); Alcohol Level < 10 mg/dL (0-10); Creatinine Clr Calc Pharmacy 98.2466; Salicylate < 0.3 mg/dL (3-10)
[2025-04-14] MEDS: tetanus-diphtheria tox (adult) 0.5 mL SDV IM (06:44)
--- NOTE | 2025-04-14 07:59 | PC.NURSE ---
Hotline report completed [facility]- [phone] Report Number- [id number]
[2025-04-14 08:20] LABS: HCG, Serum Qual Negative (Negative)
[2025-04-14 10:05] LABS: Glucose Urine UA Negative (Normal); Nitrate Urine Negative (Negative)
[2025-04-14 10:06] LABS: PCP Screen Urine Negative (Negative)
[2025-04-14 10:21] LABS: Add Urine Microscopic? YES; Specific Gravity, Urine 1.031 (1.005-1.030)
--- NOTE | 2025-04-14 10:26 | PC.NURSE ---
96 hr rights reviewed with pt @0800 with assistance of [facility] account officer Dwight Patton All education reviewed with pt at this time. Pt verbalized understanding to hold parameters when asked. Pt copy was left with pt. Declined beverage and snack when asked. No further needs at this time.
[2025-04-14 10:37] LABS: Respiratory Syncytial Virus Ce NEGATIVE (Negative); SARS-CoV-2 PCR NEGATIVE (Negative)
--- NOTE | 2025-04-14 11:31 | PC.NURSE ---
spoke with Steph at [facility] --declining d/t behavioral and medical
--- NOTE | 2025-04-14 15:38 | PC.NURSE ---
CPS update I was notified at 1315 from the quality process lead at [facility] that they had not been able to locate the children at that point. She asked if the father of the baby/patient's significant other was at the hospital visiting the patient. I was unable to locate the FOB/significant other in the ED. I went into the patient's room at this time and introduced myself. The patient was appropriate and answered all of my questions. I let her know that CPS had not been able to locate the FOB or the children to make sure they were safe. The patient became tearful. The patient gave me a new number for the FOB [phone] and verified that the address that I had was correct. She also gave me the name and address of an uncle- well a friend Gavin Carballo [address] [place] [address]. During the time that I was in talking to the patient, her sister called the floor wanting to know an update on the patient. She left her phone number. I contacted CPS and gave them all of this information to help locate the children and FOB. I notified RD ( medical office receptionist) of the situation and that I would like for him to help me contact law enforcement to make them aware of the concern. He notified the [facility]'s Office at [phone]. Dispatch stated they would relay the message to a deputy to have them call us back. At approximately 1405 I was notified by RD that the [employer] called back and they were going to go out and do a Wellness check and try to help locate the children and FOB. At approximately 1540 I was notified from CPS that the children were located. Primary nurse, medical office receptionist, Tube Depatcher, and Providers were updated.
--- NOTE | 2025-04-14 20:00 | PC.NURSE ---
WOUNDS LAST EVENING, DR THORNTON SPOKE TO DR ZAPIEN WHILE ADDRESSING PATIENTS BILATERAL LEG/FOOT WOUNDS. DR. ZAPIEN PLANS ON SEEING THIS PATIENT IN THE AM.
[2025-04-14] MEDS: mupirocin oint 22 gm 1 APPLIC TOPICAL ×2 (21:02→21:04)
--- NOTE | 2025-04-15 05:19 | PC.NURSE ---
BLE WOUNDS DR THORNTON EXAMINED AND DRESSED PATIENTS BILATERAL FOOT AND LEFT KNEE WOUNDS. CALL WAS PLACED TO DR ZAPIEN FOR CONSULT ON SAME WOUNDS. DR ZAPIEN AGREED TO COME THIS AM TO EXAMINE PATIENTS WOUNDS HIMSELF.
[2025-04-15 06:00] VITALS: BP 103/63; PULSE 96; RESP 15; TEMP 37.1; O2SAT 99
--- NOTE | 2025-04-15 06:58 | PM.CONSULT ---
Providers/Reason For Consult Consulting Physician/Specialty*: Nico Krause D.P.M./podiatry Reason for Consult*: Laceration bilateral lower extremity. Attending Physician: Riaz Rodriguez MD History of Present Illness History of Present Illness Dionne Mendoza is a 24 year old female admitted to Neuropsych Unit for a 96-hour hold from the emergency department for drug-induced psychotic disorder, patient admits to methamphetamine use 5 days in a row and was found to have multiple lacerations of her lower extremities from a porcelain toilet that was broken down she was found laying in ceramic shards, also found to have a fracture of the right fifth toe proximal phalanx. Review of Systems Const: Denies: fever(s), chills or fatigue Eyes: Denies: change in vision Card: Denies: chest pain, palpitations or dyspnea on exertion Resp: Denies: dyspnea or productive cough GI: Denies: abdominal pain, nausea, vomiting, diarrhea or constipation Musc: Reports: extremity pain (Painful lesions on the bottom of the feet) Skin/Breast: Reports: skin tenderness (Porokeratosis) and lesions (Porokeratosis) Neuro: Reports: difficulty walking (Pain with weightbearing at porokeratosis); Denies: numbness in extremities Psych: Denies: suicidal ideation or homicidal ideation Medications/Allergies Home Medications ?Medication ?Instructions ?Recorded ?Confirmed ?Last Taken ?Type No Known Home Medications 04/14/25 04/14/25 Unknown History Allergies Allergy/AdvReac Type Severity Reaction Status Date / Time No Known Allergies Allergy Unverified 03/20/24 13:13 Current Medications Generic Name Dose Route Start Last Admin Trade Name Jesus PRN Reason Stop Dose Admin Cephalexin HCl 500 mg 04/14/25 17:55 04/14/25 21:05 Cephalexin 500 Mg Capsule PO 04/20/25 21:00 500 mg TID OG Administration Protocol Mupirocin 1 applic 04/14/25 17:55 04/14/25 21:04 Mupirocin Oint 22 Gm TOPICAL 1 applic BID OG Administration PFSH Acute PFSH: Family History Denies family history of Colon cancer Ovarian cancer Prostate cancer Diabetes Heart disease Breast cancer Hypertension Uterine cancer Thyroid disease Stroke Vitals/I&O/Wt Last Vital Signs Temp 98.8 F 04/15/25 06:00 Pulse 96 04/15/25 06:00 Resp 15 04/15/25 06:00 BP 103/63 04/15/25 06:00 Pulse Ox 99 04/15/25 06:00 O2 Del Method Room Air 04/14/25 17:57 Weight last 48 hrs Weight 185 lb Physical Exam Narrative: GENERAL: Patient is alert and oriented ?3 and in no acute distress. The following is a focused bilateral lower extremity exam. VASCULAR: Dorsalis pedis palpable bilaterally. Posterior tibial arteries palpable. Capillary refill time less than 3 seconds to the distal hallux bilaterally. Calf is supple and nontender proximally and distally. Pedal hair growth present. NEUROLOGICAL: Protective sensation intact 10/10 sites, tested with [place] monofilament to bilateral feet. DERMATOLOGICAL: Excoriations to the bilateral lower extremities with abrasions at the dorsum of the left foot and anterior ankle that are well-approximated with skin adhesive and Dermabond, no periwound erythema warmth or purulent drainage at the excoriations and abrasions, skin tear at the right fourth webspace, ecchymosis right fifth toe. No erythema warmth or drainage at the right fourth webspace, webspaces clean and dry. MUSCULOSKELETAL: Tenderness to palpation right fifth toe, no gross deformity or acute dislocation at the right fifth toe able to dorsiflex and plantarflex toes 1 through 5 bilaterally on command. Muscle strength +5 in all 3 planes bilateral foot and ankle pain-free without guarding. Data 04/14/25 01:27 04/14/25 01:27 A&P Assessment and plan 1. Acute psychosis: 2. Drug-induced psychotic disorder with complication: 3. Methamphetamine use disorder, severe, dependence: 4. Multiple lacerations: 5. Open fracture of phalanx of right fifth toe, initial encounter: Plan: 24-year-old female with drug-induced psychosis secondary to methamphetamine abuse presents with abrasions and lacerations bilateral lower extremity of most concern is her right fifth toe proximal phalanx fracture minimally displaced however there is a skin tear within the fourth webspace right foot which classifies this as a open fracture. The webspace is clean, dry, no erythema warmth or drainage. Patient receiving cephalexin 500 mg 3 times daily. No clinical signs of infection. Right fifth toe was quinten splinted to the 4th and 3rd toe. Remaining abrasions and lacerations are well-healing without clinical signs of infection. Patient may be weightbearing as tolerated. Will follow-up outpatient for continued fracture care and monitoring of wounds, will schedule follow-up in podiatry clinic next week or at tertiary center depending on where she is transferred. Podiatry will follow PDMP PDMP Reviewed: Not Reviewed Coding Level of Care Code Acute Code for [facility] Fwd Diagnoses Acute psychosis F23 Drug-induced psychotic disorder with complication F19.959 Complication of substance-induced condition: with unspecified complication Methamphetamine use disorder, severe, dependence F15.20 Multiple lacerations T07.XXXA Open fracture of phalanx of right fifth toe, initial encounter S92.501B Encounter type: initial encounter
[2025-04-15] MEDS: mupirocin oint 22 gm 1 APPLIC TOPICAL ×2 (08:45→17:45)
[2025-04-15] MEDS: cetylpyridinium Lozenge 1 EACH MUCOUS MEM (10:38)
--- NOTE | 2025-04-15 13:29 | P.NPUHP_ITS ---
Providers/Chief Complaint 2 Admitting Physician: Riaz Rodriguez MD Chief Complaint: si HPI NPU History of Present Illness Dionne Mendoza is a 24 year old female who presented to the emergency department with the following report: Chief Complaint: Psychiatric Symptoms Stated Complaint: si Time Seen by Provider: 04/14/25 00:40 History of Present Illness: Patient is brought in by EMS with concerns for meth overdose. The patient apparently was found amidst a broken porcelain toilet and admitted to using meth. She states that people are after her and she is trying to protect herself. She became very combative and route and required Haldol and Versed. Upon arrival here she is very sleepy. She does answer some questions but still endorses the notion that people are after her and trying to kill her. She has numerous lacerations on her hands, legs, feet. Most of them are superficial. She has a full-thickness laceration between her right 4th and 5th toes, she has a 4.5 cm laceration of her left anterior lower leg, she also has multiple small lacerations on the left foot. She allowed me to anesthetize, and start to repair the wound on the left leg but then became combative and did not want me to repair them. I was able to place giuliano instead of sutures as it was quick enough to close the wound. She then would not allow me to repair any of the other wounds including the one between her toes on her right foot. Will wrap them after cleaning them well and reassess when she is sober. Will check labs, await sobriety, and reassess. She was admitted to the neuropsychiatric unit for definitive treatment of those issues. She is unknown to [facility] psychiatry through inpatient or outpatient services. She presented to the emergency department with psychosis and a UDS positive for amphetamines and cannabis. She reported a history of having some medications for depression and anxiety in the past but cannot recall the names. She reports she had not been on medication in part for the fact that she had been . She reports having past inpatient hospitalization as a juvenile. She denies having significant mental health treatment in her life. She endorsed having no nicotine or alcohol use on a regular basis but some limited use in the past. She reports that she is a significant user of cannabis and has had sporadic methamphetamine use and addiction. She acknowledges that the reason why she is here now is secondary to her use that spanned several days where she did not sleep and then as the sleep worsen she started having odd thoughts and ended up going in the bathroom and kicking her toilet possibly breaking her toe and smashing the toilet which ended up with her getting lacerations on her leg and foot. She was brought to the hospital secondary to these behaviors and was having psychosis in the emergency department but this psychosis has appeared to resolve per staff reports and direct observation. She denies any history of sober living treatment. She denies any charges related to her use or otherwise. She reports that her depression and anxiety went back to her childhood. She reports that she does not know a lot about her family history because she was in an orphanage with her sister and eventually adopted when she was about 7 and she only knows that her mother had significant drinking problems. She reports that she has had depression with passive in which she had suicidal thoughts but not currently reports that if anything her anxiety is a greater difficulty now but even those things are mostly under control as long as she is not using. She reports that the use of cannabis became a significant tool for her to manage emotional symptoms. She endorses that there was likely neglect which led to her going to the orphanage but once she got to her adoptive mother there was no emotional physical or sexual abuse though she reports her relationship with her mother is challenging at best. She was adopted along with her sister. She did not graduate from high school and reports that she had some learning challenges and did have an IEP in school. She endorses being heterosexual with her longest relationship being about 3 years. 3-1/2 years. She reports that she has never been officially but that her significant other/boyfriend/fianc? is the father of both her children and 2-1/2-year-old and a 6-month-old. They are both vaginal deliveries. She has never been in the endorses being a Muslim but not active. She denies significant work history and lives in an apartment with her children and significant other. She denies any legal issues. She denies any significant medical issues other than having 2 pregnancies and deliveries. We discussed the risks, benefits and alternatives of monitoring her against the backdrop of the 96-hour hold, considering medications for depression, anxiety or cravings continuing to address her physical needs from the cuts having gotten a podiatry consult due to some of the injuries to her feet, and evaluating for safety prior to discharge she understood and agreed to proceed as is documented in this note. Meds NPU Home Medications ?Medication ?Instructions ?Recorded ?Confirmed ?Last Taken ?Type No Known Home Medications 04/14/2503/27 Unknown History Allergies Allergy/AdvReac Type Severity Reaction Status Date / Time No Known Allergies Allergy Unverified 03/20/24 13:13 PFSH NPU 2 PFSH: Family History Denies family history of Colon cancer Ovarian cancer Prostate cancer Diabetes Heart disease Breast cancer Hypertension Uterine cancer Thyroid disease Stroke Mental Status Exam 2 MSE Comments: This is an obese white female in hospital scrubs with limited grooming but adequate eye contact. No abnormal movements except for mild psychomotor retardation. Cooperative with exam in mild to moderate distress. Speech was decreased rate and volume. Mood described as anxious but a little better, affect congruent. Thought process linear and mostly organized. Thought content: Patient denied suicidal or homicidal ideation, there were no delusions reported or noted, she denied any auditory or visual hallucinations. Attention and concentration appeared intact and memory was mostly reliable but no more formally tested. She is alert and oriented x 3. Insight, judgment and impulse control were limited versus impaired. Vitals/I&O/Wt Last Vital Signs Temp 98.8 F 04/15/25 06:00 Pulse 96 04/15/25 06:00 Resp 15 04/15/25 06:00 BP 103/63 04/15/25 06:00 Pulse Ox 99 04/15/25 06:00 O2 Del Method Room Air 04/14/25 17:57 Weight last 48 hrs Weight 83.915 kg Data NPU 04/14/25 01:27 04/14/25 01:27 A&P Assessment and plan 1. Acute psychosis: 2. Drug-induced psychotic disorder: 3. Methamphetamine use disorder, severe, dependence: 4. Cannabis use disorder: 5. Generalized anxiety disorder: 6. Major depressive disorder: Plan: This is a 24-year-old white female with a long history of mental health and some addiction issues who presents with active addiction specifically marijuana and methamphetamines who had a recent string of methamphetamine use that led to her not sleeping for several days and having a psychotic event that ended in her breaking a toilet and cutting herself pretty substantially requiring giuliano and laceration repair. The psychosis seem to resolve quickly and she has a history of depression and anxiety and is exploring what level of treatment she is willing to invest in. 1. Continue current medication. Consider medication for anxiety, depression and/or cravings. 2. Continue every 15 minute checks for safety. 3. Encourage individual, group and milieu therapy. 4. Encourage sober living treatment after discharge at the highest level care to which she is willing to commit. 5. Obtain collateral information. 6. Evaluate against the backdrop of the 96-hour hold. PDMP PDMP Reviewed: Not Reviewed Involuntary Hold Information 2 Hold Status: Legal Status: 96 Hour Hold Date/Time Hold Expires: @[id number] Attestations NPU 2 Medical Necessity Statement*: Inpatient hospitalization is medically necessary and the clinically appropriate intervention at this time. We will initiate/monitor medications and make changes as indicated. Patient will be in the hospital for over 2 midnights. Likely length of stay 3 to 5 days. Coding Level of Care Code Acute Code for [facility] Fwd Diagnoses Acute psychosis F23 Drug-induced psychotic disorder F19.959 Methamphetamine use disorder, severe, dependence F15.20 Cannabis use disorder F12.90 Generalized anxiety disorder F41.1 Major depressive disorder F32.9
[2025-04-15 14:00] VITALS: BP 105/59; PULSE 99; RESP 16; TEMP 37; O2SAT 99
[2025-04-15 19:34] VITALS: BP 108/74; PULSE 93; RESP 18; TEMP 36.4; O2SAT 96
--- NOTE | 2025-04-16 03:30 | PC.NURSE ---
Pt asked this nurse if we could find out if her was being transferred out of ER. This nurse spoke with Abdifatah in ER and asked if pt was on her husbands release of information form. Abdifatah stated that he would have Meredith from registration call back. Meredith from Registration called this nurse and stated that pt was on her husbands release of information form.
[2025-04-16 06:00] VITALS: BP 109/70; PULSE 93; RESP 16; TEMP 37; O2SAT 98
[2025-04-16 13:52] VITALS: BP 125/85; PULSE 83; RESP 16; TEMP 36.6; O2SAT 99
--- NOTE | 2025-04-16 15:32 | P.NPUPN_ITS ---
Subjective NPU 2 Subjective: Patient presented today reporting she is not doing well. She is really struggling with the situation regarding her children and feeling ashamed and missing them. We discussed the importance of doing what she can do now that she is here in the situation and that the main thing she needs to do is focus on her treatment and do the things that are necessary to be in a place where someone might be open to giving her a chance to reconnect with her children. She is working with the social work team on evaluating different options for inpatient rehab. He Mental Status Exam 2 MSE Comments: This is an obese white female in hospital scrubs with limited grooming but adequate eye contact. No abnormal movements except for mild psychomotor retardation. Cooperative with exam in mild to moderate distress. Speech was decreased rate and volume. Mood described as anxious and ashamed, affect congruent and tearful. Thought process linear and mostly organized. Thought content: Patient denied suicidal or homicidal ideation, there were no delusions reported or noted, she denied any auditory or visual hallucinations. Attention and concentration appeared intact and memory was mostly reliable but no more formally tested. She is alert and oriented x 3. Insight, judgment and impulse control were limited versus impaired. Vitals/I&O/Wt Last Vital Signs Temp 98 F 04/16/25 13:52 Pulse 83 04/16/25 13:52 Resp 16 04/16/25 13:52 BP 125/85 04/16/25 13:52 Pulse Ox 99 04/16/25 13:52 O2 Del Method Room Air 04/16/25 13:52 Data NPU 04/14/25 01:27 04/14/25 01:27 A&P Assessment and plan 1. Acute psychosis: 2. Drug-induced psychotic disorder: 3. Methamphetamine use disorder, severe, dependence: 4. Cannabis use disorder: 5. Generalized anxiety disorder: 6. Major depressive disorder: Plan: This is a 24-year-old white female with a long history of mental health and some addiction issues who presents with active addiction specifically marijuana and methamphetamines who had a recent string of methamphetamine use that led to her not sleeping for several days and having a psychotic event that ended in her breaking a toilet and cutting herself pretty substantially requiring giuliano and laceration repair. The psychosis seem to resolve quickly and she has a history of depression and anxiety and is exploring what level of treatment she is willing to invest in. 1. Continue current medication. Consider medication for anxiety, depression and/or cravings. 2. Continue every 15 minute checks for safety. 3. Encourage individual, group and milieu therapy. 4. Encourage sober living treatment after discharge at the highest level care to which she is willing to commit. We discussed the critical need for her to invest in inpatient rehab to get a handle on her current situation and to begin rebuilding her image in the eyes of the court for any hopes of her unifying with children 5. Obtain collateral information. 6. Evaluate against the backdrop of the 96-hour hold. PDMP PDMP Reviewed: Not Reviewed Involuntary Hold Information 2 Hold Status: Legal Status: 96 Hour Hold Date/Time Hold Expires: @[id number] Attestations NPU 2 Medical Necessity Statement*: Inpatient hospitalization is medically necessary and the clinically appropriate intervention at this time. We will initiate/monitor medications and make changes as indicated. Likely length of stay 3 to 5 days. Coding Level of Care Code Acute Code for [facility] Diagnoses Acute psychosis F23 Drug-induced psychotic disorder F19.959 Methamphetamine use disorder, severe, dependence F15.20 Cannabis use disorder F12.90 Generalized anxiety disorder F41.1 Major depressive disorder F32.9
[2025-04-16] MEDS: mupirocin oint 22 gm 1 APPLIC TOPICAL (19:04)
[2025-04-16 20:15] VITALS: BP 107/76; PULSE 99; RESP 18; TEMP 37.3; O2SAT 98
[2025-04-17 06:00] VITALS: BP 117/80; PULSE 94; RESP 17; TEMP 37.3; O2SAT 98
[2025-04-17] MEDS: mupirocin oint 22 gm 1 APPLIC TOPICAL (10:43)
--- NOTE | 2025-04-17 12:09 | PC.NURSE ---
Patient up at nurses station states I feel like I'm hyperventilating. Patient assist to bedroom and encouraged to slow down breathing and verbalize her feelings. Patient states that she do not want to feel these feelings and I want to give my kids away for a while. Patient is tearful and anxious. Patient given Zyprexa 5 mg sl. Sitter at bedside.
--- NOTE | 2025-04-17 13:45 | P.NPUPN_ITS ---
Subjective NPU 2 Subjective: Patient presented today reporting that she is really having a tough time about the situation related to her daughter. Actually both of her children. She reports that she knows she needs to focus on what she can do but right now she is being overwhelmed by the thoughts of the significance of the mistake that she has made. She continue to work with the social work team attempting to find sober living treatment options. Mental Status Exam 2 MSE Comments: This is an obese white female in hospital scrubs with limited grooming but adequate eye contact. No abnormal movements except for mild psychomotor retardation. Cooperative with exam in mild to moderate distress. Speech was decreased rate and volume. Mood described as anxious and ashamed, affect congruent and tearful. Thought process linear and mostly organized. Thought content: Patient denied suicidal or homicidal ideation, there were no delusions reported or noted, she denied any auditory or visual hallucinations. Attention and concentration appeared intact and memory was mostly reliable but no more formally tested. She is alert and oriented x 3. Insight, judgment and impulse control were limited versus impaired. Vitals/I&O/Wt Last Vital Signs Temp 99.1 F 04/17/25 06:00 Pulse 94 04/17/25 06:00 Resp 17 04/17/25 06:00 BP 117/80 04/17/25 06:00 Pulse Ox 98 04/17/25 06:00 O2 Del Method Room Air 04/17/25 06:00 Data NPU 04/14/25 01:27 04/14/25 01:27 A&P Assessment and plan 1. Acute psychosis: 2. Drug-induced psychotic disorder: 3. Methamphetamine use disorder, severe, dependence: 4. Cannabis use disorder: 5. Generalized anxiety disorder: 6. Major depressive disorder: Plan: This is a 24-year-old white female with a long history of mental health and some addiction issues who presents with active addiction specifically marijuana and methamphetamines who had a recent string of methamphetamine use that led to her not sleeping for several days and having a psychotic event that ended in her breaking a toilet and cutting herself pretty substantially requiring giuliano and laceration repair. The psychosis seem to resolve quickly and she has a history of depression and anxiety and is exploring what level of treatment she is willing to invest in. 1. Continue current medication. Consider medication for anxiety, depression and/or cravings. 2. Continue every 15 minute checks for safety. 3. Encourage individual, group and milieu therapy. 4. Encourage sober living treatment after discharge at the highest level care to which she is willing to commit. We discussed the critical need for her to invest in inpatient rehab to get a handle on her current situation and to begin rebuilding her image in the eyes of the court for any hopes of her unifying with children 5. Obtain collateral information. 6. Evaluate against the backdrop of the 96-hour hold. PDMP PDMP Reviewed: Not Reviewed Involuntary Hold Information 2 Hold Status: Legal Status: 96 Hour Hold Date/Time Hold Expires: @[id number] Attestations NPU 2 Medical Necessity Statement*: Inpatient hospitalization is medically necessary and the clinically appropriate intervention at this time. We will initiate/monitor medications and make changes as indicated. Likely length of stay 2-4 days. Coding Level of Care Code Acute Code for [facility] Fwd Diagnoses Acute psychosis F23 Drug-induced psychotic disorder F19.959 Methamphetamine use disorder, severe, dependence F15.20 Cannabis use disorder F12.90 Generalized anxiety disorder F41.1 Major depressive disorder F32.9
[2025-04-17 14:00] VITALS: BP 102/64; PULSE 84; RESP 16; TEMP 37.1; O2SAT 98
[2025-04-17 20:06] VITALS: BP 109/72; PULSE 91; RESP 18; TEMP 37.7; O2SAT 98
--- NOTE | 2025-04-17 20:07 | PC.NURSE ---
when vs where completed pt had a temp of 99.9, nurse notified
[2025-04-18 06:00] VITALS: BP 113/72; PULSE 89; RESP 18; TEMP 37.3; O2SAT 99
--- NOTE | 2025-04-18 07:04 | PC.NURSE ---
04/17/251999 temp of 99.[address] Rodriguez notified et tylenol administered. 2120 temp @ 99.0.
[2025-04-18 14:00] VITALS: BP 113/76; PULSE 71; RESP 16; TEMP 37.4; O2SAT 98
--- NOTE | 2025-04-18 17:19 | P.NPUPN_ITS ---
Subjective NPU 2 Subjective: Patient presented today reporting that she still struggling with her situation. She continues to await what options exist as far as placement for rehab. Still considering medication and denied any side effects to any of the as needed medication she is taking. Mental Status Exam 2 MSE Comments: This is an obese white female in hospital scrubs with limited grooming but adequate eye contact. No abnormal movements except for mild psychomotor retardation. Cooperative with exam in mild distress. Speech was decreased rate and volume. Mood described as having a tough time, affect congruent and tearful. Thought process linear and mostly organized. Thought content: Patient denied suicidal or homicidal ideation, there were no delusions reported or noted, she denied any auditory or visual hallucinations. Attention and concentration appeared intact and memory was mostly reliable but no more formally tested. She is alert and oriented x 3. Insight, judgment and impulse control were limited versus impaired. Vitals/I&O/Wt Last Vital Signs Temp 99.3 F 04/18/25 14:00 Pulse 71 04/18/25 14:00 Resp 16 04/18/25 14:00 BP 113/76 04/18/25 14:00 Pulse Ox 98 04/18/25 14:00 O2 Del Method Room Air 04/18/25 14:00 Data NPU 04/14/25 01:27 04/14/25 01:27 A&P Assessment and plan 1. Acute psychosis: 2. Drug-induced psychotic disorder: 3. Methamphetamine use disorder, severe, dependence: 4. Cannabis use disorder: 5. Generalized anxiety disorder: 6. Major depressive disorder: Plan: This is a 24-year-old white female with a long history of mental health and some addiction issues who presents with active addiction specifically marijuana and methamphetamines who had a recent string of methamphetamine use that led to her not sleeping for several days and having a psychotic event that ended in her breaking a toilet and cutting herself pretty substantially requiring giuliano and laceration repair. The psychosis seem to resolve quickly and she has a history of depression and anxiety and is exploring what level of treatment she is willing to invest in. 1. Continue current medication. Consider medication for anxiety, depression and/or cravings. 2. Continue every 15 minute checks for safety. 3. Encourage individual, group and milieu therapy. 4. Encourage sober living treatment after discharge at the highest level care to which she is willing to commit. We discussed the critical need for her to invest in inpatient rehab to get a handle on her current situation and to begin rebuilding her image in the eyes of the court for any hopes of her unifying with children 5. Obtain collateral information. 6. Evaluate against the backdrop of the 96-hour hold. PDMP PDMP Reviewed: Not Reviewed Involuntary Hold Information 2 Hold Status: Legal Status: 96 Hour Hold Date/Time Hold Expires: @[id number] Attestations NPU 2 Medical Necessity Statement*: Inpatient hospitalization is medically necessary and the clinically appropriate intervention at this time. We will initiate/monitor medications and make changes as indicated. Likely length of stay 2-4 days. Coding Level of Care Code Acute Code for [facility] Fwd Diagnoses Acute psychosis F23 Drug-induced psychotic disorder F19.959 Methamphetamine use disorder, severe, dependence F15.20 Cannabis use disorder F12.90 Generalized anxiety disorder F41.1 Major depressive disorder F32.9
[2025-04-18] MEDS: mupirocin oint 22 gm 1 APPLIC TOPICAL (19:04)
[2025-04-18 20:00] VITALS: BP 121/76; PULSE 70; RESP 18; TEMP 37; O2SAT 98
[2025-04-19 06:00] VITALS: BP 120/80; PULSE 73; RESP 18; TEMP 37.1; O2SAT 99; BMI 31.4
[2025-04-19 14:00] VITALS: BP 111/71; PULSE 66; RESP 16; TEMP 37.5; O2SAT 100
[2025-04-19] MEDS: mupirocin oint 22 gm 1 APPLIC TOPICAL ×2 (14:10→17:54)
--- NOTE | 2025-04-19 17:22 | W.PM.NPUPNS ---
Subjective NPU Subjective: Patient presented today reporting that things are little bit better. She has found a friend that she had not heard from who is being very supportive and has been in her shoes before. She is fully invested in going to rehab and then rebuilding her life including that with her children. We discussed the process of how rehab can go and how she might get to rehab least the pathway depending on how far away the bed dates are. She reports that he will be supportive and will be a sober environment where his she can go to specially if she is evicted. She denied any side effects to any of the as needed medication. Mental Status Exam MSE Comments: This is an obese white female in hospital scrubs with limited grooming but adequate eye contact. No abnormal movements except for mild psychomotor retardation. Cooperative with exam in mild distress. Speech was decreased rate and volume. Mood described as doing better, affect congruent and tearful. Thought process linear and mostly organized. Thought content: Patient denied suicidal or homicidal ideation, there were no delusions reported or noted, she denied any auditory or visual hallucinations. Attention and concentration appeared intact and memory was mostly reliable but no more formally tested. She is alert and oriented x 3. Insight, judgment and impulse control were limited versus impaired. Vitals/I&O/Wt Last Vital Signs Temp 99.5 F 04/19/25 14:00 Pulse 66 04/19/25 14:00 Resp 16 04/19/25 14:00 BP 111/71 04/19/25 14:00 Pulse Ox 100 04/19/25 14:00 O2 Del Method Room Air 04/19/25 14:00 Weight last 48 hrs Weight 90.832 kg Data NPU 04/14/25 01:27 04/14/25 01:27 A&P Assessment and plan 1. Acute psychosis: 2. Drug-induced psychotic disorder: 3. Methamphetamine use disorder, severe, dependence: 4. Cannabis use disorder: 5. Generalized anxiety disorder: 6. Major depressive disorder: Plan: This is a 24-year-old white female with a long history of mental health and some addiction issues who presents with active addiction specifically marijuana and methamphetamines who had a recent string of methamphetamine use that led to her not sleeping for several days and having a psychotic event that ended in her breaking a toilet and cutting herself pretty substantially requiring giuliano and laceration repair. The psychosis seem to resolve quickly and she has a history of depression and anxiety and is exploring what level of treatment she is willing to invest in. 1. Continue current medication. Consider medication for anxiety, depression and/or cravings. 2. Continue every 15 minute checks for safety. 3. Encourage individual, group and milieu therapy. 4. Encourage sober living treatment after discharge at the highest level care to which she is willing to commit. We discussed the critical need for her to invest in inpatient rehab to get a handle on her current situation and to begin rebuilding her image in the eyes of the court for any hopes of her unifying with children 5. Obtain collateral information. 6. Evaluate against the backdrop of the 96-hour hold. PDMP PDMP Reviewed: Not Reviewed Involuntary Hold Information Hold Status: Legal Status: 96 Hour Hold Date/Time Hold Expires: 04/20/25@[id number] Attestations NPU Medical Necessity Statement*: Inpatient hospitalization is medically necessary and the clinically appropriate intervention at this time. We will initiate/monitor medications and make changes as indicated. Likely length of stay 1-3 days. Coding Level of Care Code Acute Code for [facility] Fwd Diagnoses Acute psychosis F23 Drug-induced psychotic disorder F19.959 Methamphetamine use disorder, severe, dependence F15.20 Cannabis use disorder F12.90 Generalized anxiety disorder F41.1 Major depressive disorder F32.9
[2025-04-19 20:37] VITALS: BP 148/85; PULSE 78; RESP 18; TEMP 37.2; O2SAT 97
[2025-04-20 06:00] VITALS: BP 108/68; PULSE 69; RESP 19; TEMP 37
[2025-04-20] MEDS: mupirocin oint 22 gm 1 APPLIC TOPICAL ×2 (09:52→17:47)
[2025-04-20 14:00] VITALS: BP 100/63; PULSE 92; RESP 17; TEMP 36.7; O2SAT 100
--- NOTE | 2025-04-20 14:53 | P.NPUPN_ITS ---
Subjective NPU 2 Subjective: 24-year-old female admitted with a histo ry of generalized anxiety disorder and a 4-year history of methamphetamine abuse with psychosis on admission. Patient denied any psychotic symptoms at this time. She had reported no side effects from her Prozac. She had stated that she had a interview with [facility] today and was hopeful about receiving senior care and continued help with her addiction while staying there. She continued to report interest in consideration of rehabilitation and stated that she was waiting on a date at which time she would be excepted there. She had reported no cravings currently for methamphetamine use and stated that she believes that the methamphetamine had been laced with fentanyl as she had never had problems with psychosis associated with her methamphetamine use. Mental Status Exam 2 MSE Comments: This is an obese white female in hospital scrubs with limited grooming but adequate eye contact. No abnormal movements except for mild psychomotor retardation. She was cooperative with exam in mild distress. Her speech was slightly decreased in rate and normal in volume. Mood described as okay. Her affect was mood congruent and tearful. Thought process was linear and mostly organized. Thought content: Patient denied suicidal or homicidal ideation, there were no delusions reported or noted, she denied any auditory or visual hallucinations. Attention and concentration appeared intact and memory was mostly reliable but no more formally tested. She is alert and oriented x 3. Insight was limited. Judgment was fair. Her impulse control was limited. Vitals/I&O/Wt Last Vital Signs Temp 98.1 F 04/20/25 14:00 Pulse 92 04/20/25 14:00 Resp 17 04/20/25 14:00 BP 100/63 04/20/25 14:00 Pulse Ox 100 04/20/25 14:00 O2 Del Method Room Air 04/20/25 06:00 Weight last 48 hrs Weight 90.832 kg Data NPU 04/14/25 01:27 04/14/25 01:27 A&P Assessment and plan 1. Acute psychosis: 2. Drug-induced psychotic disorder: 3. Methamphetamine use disorder, severe, dependence: 4. Cannabis use disorder: 5. Generalized anxiety disorder: 6. Major depressive disorder: Plan: This is a 24-year-old white female with a long history of mental health and some addiction issues who presents with active addiction specifically marijuana and methamphetamines who had a recent string of methamphetamine use that led to her not sleeping for several days and having a psychotic event that ended in her breaking a toilet and cutting herself pretty substantially requiring giuliano and laceration repair. The psychosis seem to resolve quickly and she has a history of depression and anxiety and is exploring what level of treatment she is willing to invest in. 1. Continue Prozac 20mg in am. 2. Continue every 15 minute checks for safety. 3. Encourage individual, group and milieu therapy. 4. Encourage sober living treatment after discharge at the highest level care to which she is willing to commit. Hopeful about placement in inpatient treatment facility. 5. Obtain collateral information. 6. Evaluate against the backdrop of the 96-hour hold. PDMP PDMP Reviewed: Not Reviewed Involuntary Hold Information 2 Hold Status: Legal Status: 21 Day Hold Date/Time Hold Expires: court 04/21/25 Attestations NPU 2 Medical Necessity Statement*: Inpatient hospitalization is medically necessary and the clinically appropriate intervention at this time. We will initiate/monitor medications and make changes as indicated. Likely length of stay 1-3 days. Coding Level of Care Code Acute Code for [facility] Fwd Diagnoses Acute psychosis F23 Drug-induced psychotic disorder F19.959 Methamphetamine use disorder, severe, dependence F15.20 Cannabis use disorder F12.90 Generalized anxiety disorder F41.1 Major depressive disorder F32.9
[2025-04-20 19:56] VITALS: BP 114/64; PULSE 86; RESP 18; TEMP 36.9; O2SAT 97
[2025-04-21 06:00] VITALS: BP 118/81; PULSE 76; RESP 18; TEMP 36.8; O2SAT 99
[2025-04-21] MEDS: mupirocin oint 22 gm 1 APPLIC TOPICAL ×2 (08:16→17:18)
[2025-04-21 14:00] VITALS: BP 120/41; PULSE 76; RESP 16; TEMP 37.1; O2SAT 99
--- NOTE | 2025-04-21 18:29 | P.NPUPN_ITS ---
Subjective NPU 2 Subjective: 24-year-old female admitted with a histo ry of generalized anxiety disorder and a history of methamphetamine abuse with psychosis on admission. Patient denied any psychotic symptoms at this time. She reported that she was hopeful about finding a bed and going to [facility] for an inpatient substance abuse treatment for methamphetamine use. She was compliant and cooperative on the milieu. She reported no side effects from her medications. Patient denied any psychotic symptoms at this time. She had reported no side effects from her Prozac. Mental Status Exam 2 MSE Comments: This is an obese white female in hospital scrubs with improved grooming and fair eye contact. No abnormal movements except for mild psychomotor retardation. She was cooperative with exam in mild distress. Her speech was slightly decreased in rate and normal in volume. Mood described as better. Her affect was less restricted. Thought process was linear and mostly organized. Thought content: Patient denied suicidal or homicidal ideation, there were no delusions reported or noted, she denied any auditory or visual hallucinations. Attention and concentration appeared intact and memory was mostly reliable but no more formally tested. She is alert and oriented x 3. Insight was limited. Judgment was fair. Her impulse control was improving. Vitals/I&O/Wt Last Vital Signs Temp 98.8 F 04/21/25 14:00 Pulse 76 04/21/25 14:00 Resp 16 04/21/25 14:00 BP 120/41 04/21/25 14:00 Pulse Ox 99 04/21/25 14:00 O2 Del Method Room Air 04/21/25 14:00 Data NPU 04/14/25 01:27 04/14/25 01:27 A&P Assessment and plan 1. Acute psychosis: 2. Drug-induced psychotic disorder: 3. Methamphetamine use disorder, severe, dependence: 4. Cannabis use disorder: 5. Generalized anxiety disorder: 6. Major depressive disorder: Plan: This is a 24-year-old white female with a long history of mental health and some addiction issues who presents with active addiction specifically marijuana and methamphetamines who had a recent string of methamphetamine use that led to her not sleeping for several days and having a psychotic event that ended in her breaking a toilet and cutting herself pretty substantially requiring giuliano and laceration repair. The psychosis seem to resolve quickly and she has a history of depression and anxiety and is exploring what level of treatment she is willing to invest in. 1. Continue Prozac 20mg in am. 2. Continue every 15 minute checks for safety. 3. Encourage individual, group and milieu therapy. 4. Encourage sober living treatment after discharge at the highest level care to which she is willing to commit. Hopeful about placement in inpatient treatment facility through [facility] when bed becomes available. 5. Obtain collateral information. 6. Patient signed voluntarily into hospital. PDMP PDMP Reviewed: Not Reviewed Involuntary Hold Information 2 Hold Status: Legal Status: 21 Day Hold Date/Time Hold Expires: court 04/21/25 Attestations NPU 2 Medical Necessity Statement*: Inpatient hospitalization is medically necessary and the clinically appropriate intervention at this time. We will initiate/monitor medications and make changes as indicated. Likely length of stay 1-3 days. Coding Level of Care Code Acute Code for [facility] Fwd Diagnoses Acute psychosis F23 Drug-induced psychotic disorder F19.959 Methamphetamine use disorder, severe, dependence F15.20 Cannabis use disorder F12.90 Generalized anxiety disorder F41.1 Major depressive disorder F32.9
[2025-04-21 19:42] VITALS: BP 203/100; PULSE 95; RESP 16; TEMP 37.2; O2SAT 97
[2025-04-22 05:55] VITALS: BP 111/72; PULSE 83; RESP 17; TEMP 37.1; O2SAT 97
[2025-04-22] MEDS: mupirocin oint 22 gm 1 APPLIC TOPICAL ×2 (08:17→17:12)
[2025-04-22 14:00] VITALS: BP 127/85; PULSE 73; RESP 16; TEMP 37.1; O2SAT 99
--- NOTE | 2025-04-22 14:18 | P.NPUPN_ITS ---
Subjective NPU 2 Subjective: 24-year-old female admitted with a histo ry of generalized anxiety disorder and a history of methamphetamine abuse with psychosis on admission. The patient reported no side effects from her medication regimen. She denied any suicidal thoughts. She states that she felt ready to get treatment for her drug abuse. She states that she was motivated to get her children back. She had reported no prior history of drug or alcohol treatment. Patient had reported chronic problems with managing worry. She reported that her depression had been better. Mental Status Exam 2 MSE Comments: This is an obese white female in hospital scrubs with improved grooming and fair eye contact. No abnormal movements except for mild psychomotor retardation. She was cooperative with exam in mild distress. Her speech was normal in rate and normal in volume. Mood described as better. Her affect was brighter. Thought process was linear and mostly organized. Thought content: Patient denied suicidal or homicidal ideation, there were no delusions reported or noted, she denied any auditory or visual hallucinations. Attention and concentration appeared intact and recent and remote memory was within normal limits. She is alert and oriented x 3. Insight was limited. Judgment was fair. Her impulse control was improving. Vitals/I&O/Wt Last Vital Signs Temp 98.8 F 04/22/25 14:00 Pulse 73 04/22/25 14:00 Resp 16 04/22/25 14:00 BP 127/85 04/22/25 14:00 Pulse Ox 99 04/22/25 14:00 O2 Del Method Room Air 04/22/25 14:00 Data NPU 04/14/25 01:27 04/14/25 01:27 A&P Assessment and plan 1. Acute psychosis: 2. Drug-induced psychotic disorder: 3. Methamphetamine use disorder, severe, dependence: 4. Cannabis use disorder: 5. Generalized anxiety disorder: 6. Major depressive disorder: Plan: This is a 24-year-old white female with a long history of mental health and some addiction issues who presents with active addiction specifically marijuana and methamphetamines who had a recent string of methamphetamine use that led to her not sleeping for several days and having a psychotic event that ended in her breaking a toilet and cutting herself pretty substantially requiring giuliano and laceration repair. The psychosis seem to resolve quickly and she has a history of depression and anxiety and is exploring what level of treatment she is willing to invest in. 1. Continue Prozac 20mg in am. 2. Continue every 15 minute checks for safety. 3. Encourage individual, group and milieu therapy. 4. Encourage sober living treatment after discharge at the highest level care to which she is willing to commit. Hopeful about placement in inpatient treatment facility through [facility] when bed becomes available. 5. Obtain collateral information. 6. Patient to be discharged tommorow. PDMP PDMP Reviewed: Not Reviewed Involuntary Hold Information 2 Hold Status: Legal Status: 21 Day Hold Date/Time Hold Expires: Signed in Vol. Attestations NPU 2 Medical Necessity Statement*: Inpatient hospitalization is medically necessary and the clinically appropriate intervention at this time. We will initiate/monitor medications and make changes as indicated. Likely length of stay 1-2 days. Coding Level of Care Code Acute Code for [facility] Fwd Diagnoses Acute psychosis F23 Drug-induced psychotic disorder F19.959 Methamphetamine use disorder, severe, dependence F15.20 Cannabis use disorder F12.90 Generalized anxiety disorder F41.1 Major depressive disorder F32.9
--- NOTE | 2025-04-22 16:06 | P.PN_ITS ---
Subjective 2 Subjective: Patient seen bedside this p.m., denies any complaints in regards to lower extremities. [place] intact at the left leg. Denies instability or weakness of the right foot, states she only has pain if she bumps her right pinky toe. Vitals/I&O/Wt Last Vital Signs Temp 98.8 F 04/22/25 14:00 Pulse 73 04/22/25 14:00 Resp 16 04/22/25 14:00 BP 127/85 04/22/25 14:00 Pulse Ox 99 04/22/25 14:00 O2 Del Method Room Air 04/22/25 14:00 Physical Exam 2 Narrative: GENERAL: Patient is alert and oriented ?3 and in no acute distress. The following is a focused bilateral lower extremity exam. VASCULAR: Dorsalis pedis palpable bilaterally. Posterior tibial arteries palpable. Capillary refill time less than 3 seconds to the distal hallux bilaterally. Calf is supple and nontender proximally and distally. Pedal hair growth present. NEUROLOGICAL: Protective sensation intact 10/10 sites, tested with [place] Lou monofilament to bilateral feet. DERMATOLOGICAL: Left leg laceration as well coapted, previously documented excoriations and abrasions are epithelialized, no erythema warmth or drainage to the bilateral lower extremity. MUSCULOSKELETAL: No tenderness to palpation right fifth toe, no gross deformity or acute dislocation at the right fifth toe able to dorsiflex and plantarflex toes 1 through 5 bilaterally on command. Muscle strength +5 in all 3 planes bilateral foot and ankle pain-free without guarding. Data 04/14/25 01:27 04/14/25 01:27 A&P Assessment and plan 1. Acute psychosis: 2. Drug-induced psychotic disorder with complication: 3. Methamphetamine use disorder, severe, dependence: 4. Multiple lacerations: 5. Open fracture of phalanx of right fifth toe, initial encounter: Plan: 24-year-old female with drug-induced psychosis secondary to methamphetamine abuse presents with abrasions and lacerations bilateral lower extremity of most concern is her right fifth toe proximal phalanx fracture. Completed oral course of Keflex without adverse reaction Abrasions and lacerations to lower extremity are epithelialized [place] removed from left leg, laceration is well-healed, reinforcement with Dermabond and Steri-Strips, will fall off on the upcoming days with showering this is okay. Repeat x-ray right foot 3 views shows stable alignment of the right fifth toe with nondisplaced fracture of the proximal phalanx with stable interval of osseous healing. Weightbearing as tolerated without restriction. No further follow-up required at this time in regards to right fifth toe fracture and bilateral lower extremity abrasions/lacerations. PDMP PDMP Reviewed: Not Reviewed Attestations 2 Medical Necessity Statement*: Per primary Coding Level of Care Code Acute Code for [facility] Fwd Diagnoses Acute psychosis F23 Drug-induced psychotic disorder with complication F19.959 Complication of substance-induced condition: with unspecified complication Methamphetamine use disorder, severe, dependence F15.20 Multiple lacerations T07.XXXA Open fracture of phalanx of right fifth toe, initial encounter S92.501B Encounter type: initial encounter
--- NOTE | 2025-04-22 16:29 | XRR_ITS ---
PROCEDURE INFORMATION: Exam: XR Right Foot Exam date and time: 04/22/2025 5:20 PM Age: 24 years old Clinical indication: Screening exam; Followup; Additional info: Fifth toe fracture follow-up TECHNIQUE: Imaging protocol: Radiologic exam of the right foot. Views: 3 or more views. COMPARISON: CR (LOW EXM, ) 04/14/2025 1:39 AM FINDINGS: Bones/joints: Grossly stable alignment of the comminuted minimally displaced intra-articular fracture of the base of the proximal phalanx 5th toe. No new acute fractures or malalignment. Soft tissues: Mild soft tissue swelling of the dorsum forefoot. XR/XR foot RT min 3V* [id number] IMPRESSION: 1. Grossly stable alignment of the comminuted minimally displaced intra-articular fracture of the base of the proximal phalanx 5th toe. 2. No new acute fractures or malalignment.
[2025-04-22 18:20] VITALS: BP 127/85; PULSE 73; RESP 16; TEMP 37.1; O2SAT 99
[2025-04-22 19:35] VITALS: BP 135/84; PULSE 77; RESP 18; TEMP 36.8; O2SAT 99
[2025-04-23 06:00] VITALS: BP 114/70; PULSE 90; RESP 16; TEMP 37.1; O2SAT 100
--- NOTE | 2025-04-23 11:52 | W.PM.NPUDCS ---
Diagnoses at Discharge Discharge Diagnosis 1. Acute psychosis: 2. Drug-induced psychotic disorder with complication: 3. Methamphetamine use disorder, severe, dependence: 4. Multiple lacerations: 5. Open fracture of phalanx of right fifth toe, initial encounter: Reason for Visit Reason for Visit: si Brief History: History of Present Illness Dionne Mendoza is a 24 year old female who presented to the emergency department with the following report: Chief Complaint: Psychiatric Symptoms Stated Complaint: si Time Seen by Provider: 04/14/25 00:40 History of Present Illness: Patient is brought in by EMS with concerns for meth overdose. The patient apparently was found amidst a broken porcelain toilet and admitted to using meth. She states that people are after her and she is trying to protect herself. She became very combative and route and required Haldol and Versed. Upon arrival here she is very sleepy. She does answer some questions but still endorses the notion that people are after her and trying to kill her. She has numerous lacerations on her hands, legs, feet. Most of them are superficial. She has a full-thickness laceration between her right 4th and 5th toes, she has a 4.5 cm laceration of her left anterior lower leg, she also has multiple small lacerations on the left foot. She allowed me to anesthetize, and start to repair the wound on the left leg but then became combative and did not want me to repair them. I was able to place giuliano instead of sutures as it was quick enough to close the wound. She then would not allow me to repair any of the other wounds including the one between her toes on her right foot. Will wrap them after cleaning them well and reassess when she is sober. Will check labs, await sobriety, and reassess. She was admitted to the neuropsychiatric unit for definitive treatment of those issues. She is unknown to [facility] psychiatry through inpatient or outpatient services. She presented to the emergency department with psychosis and a UDS positive for amphetamines and cannabis. She reported a history of having some medications for depression and anxiety in the past but cannot recall the names. She reports she had not been on medication in part for the fact that she had been . She reports having past inpatient hospitalization as a juvenile. She denies having significant mental health treatment in her life. She endorsed having no nicotine or alcohol use on a regular basis but some limited use in the past. She reports that she is a significant user of cannabis and has had sporadic methamphetamine use and addiction. She acknowledges that the reason why she is here now is secondary to her use that spanned several days where she did not sleep and then as the sleep worsen she started having odd thoughts and ended up going in the bathroom and kicking her toilet possibly breaking her toe and smashing the toilet which ended up with her getting lacerations on her leg and foot. She was brought to the hospital secondary to these behaviors and was having psychosis in the emergency department but this psychosis has appeared to resolve per staff reports and direct observation. She denies any history of sober living treatment. She denies any charges related to her use or otherwise. She reports that her depression and anxiety went back to her childhood. She reports that she does not know a lot about her family history because she was in an orphanage with her sister and eventually adopted when she was about 7 and she only knows that her mother had significant drinking problems. She reports that she has had depression with passive in which she had suicidal thoughts but not currently reports that if anything her anxiety is a greater difficulty now but even those things are mostly under control as long as she is not using. She reports that the use of cannabis became a significant tool for her to manage emotional symptoms. She endorses that there was likely neglect which led to her going to the orphanage but once she got to her adoptive mother there was no emotional physical or sexual abuse though she reports her relationship with her mother is challenging at best. She was adopted along with her sister. She did not graduate from high school and reports that she had some learning challenges and did have an IEP in school. She endorses being heterosexual with her longest relationship being about 3 years. 3-1/2 years. She reports that she has never been officially but that her significant other/boyfriend/fianc? is the father of both her children and 2-1/2-year-old and a 6-month-old. They are both vaginal deliveries. 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 She denies significant work history and lives in an apartment with her children and significant other. She denies any legal issues. She denies any significant medical issues other than having 2 pregnancies and deliveries. We discussed the risks, benefits and alternatives of monitoring her against the backdrop of the 96-hour hold, considering medications for depression, anxiety or cravings continuing to address her physical needs from the cuts having gotten a podiatry consult due to some of the injuries to her feet, and evaluating for safety prior to discharge she understood and agreed to proceed as is documented in this note. Hospital Course Hospital Course The patient presented with psychosis likely secondary to significant use of methamphetamine. Her psychosis eventually resolved and the patient was started on Prozac and titrated up to a dose of 20 mg daily to target anxiety and depression. She had an open fracture of the phalanx of the right fifth toe and it appeared to heal without incident. The patient had the giuliano removed prior to her discharge and did not require any further outpatient follow-up regarding her toe. She was motivated to consider intensive substance abuse treatment services to target her methamphetamine use as she had expressed desire to have her young children return home to live with her when she achieved sobriety for an extended period of time. During the hospitalization, the patient had routine laboratory studies which were within normal limits except for a few outliers.? Additionally, there was a general medical evaluation which was also within normal limits and revealed no new acute processes.? At the time of discharge, lethality was denied and psychosis was resolving.? Mood and anxiety were well managed.? The patient endorsed a plan to avoid all drugs of abuse and follow up with the aftercare recommendations of the treatment team.? The patient was evaluated and deemed to be absent credible lethality and had achieved the maximum benefit from an inpatient hospitalization, and so was discharged to [facility] to reside with [facility]. ? Involuntary Hold Information Hold Status: Legal Status: 21 Day Hold Date/Time Hold Expires: Signed in Vol. Mental Status Exam MSE Comments: This is an obese white female in hospital scrubs with improved grooming and fair eye contact. No abnormal movements except for mild psychomotor retardation. She was cooperative with exam in no acute distress. Her speech was normal in rate and normal in volume. Mood described as better. Her affect was brighter. Thought process was linear and mostly organized. Thought content: Patient denied suicidal or homicidal ideation, there were no delusions reported or noted, she denied any auditory or visual hallucinations. Attention and concentration appeared intact and recent and remote memory was within normal limits. She is alert and oriented x 3. Insight was limited. Judgment was fair. Her impulse control was improving. Discharge Data Studies Completed and Pending: Completed Studies During Hospitalization Category Date Time Status CT head wo con* [id number] Stat Cat Scan 04/14/25 00:44 Completed XR foot RT min 3V * [id number] Routine Exams 04/22/25 16:29 Completed XR foot RT min 3V * [id number] Stat Exams 04/14/25 01:36 Completed Radiology Impressions Head CT 04/14/25 00:44 IMPRESSION: No acute intracranial abnormality. Foot X-Ray 04/22/25 16:29 IMPRESSION: 1. Grossly stable alignment of the comminuted minimally displaced intra-articular fracture of the base of the proximal phalanx 5th toe. 2. No new acute fractures or malalignment. Laboratory Results WBC 16.85 10^3/uL (3. 29-11.43) H 04/14/25 01:27 RBC 4.98 10^6/uL (3.8 5-5.65) 04/14/25 01:27 Hgb 12.20 g/dL (11.27 -16.99) 04/14/25 01:27 Hct 38.9 % (36-47) 04/14/25 01:27 MCV 78.1 fl (85-98) L 04/14/25 01:27 MCH 24.5 pg (27-33) L 04/14/25 01:27 MCHC 31.4 g/dL (30-55) 04/14/25 01:27 RDW 15.4 % (12.1-15.1 ) H 04/14/25 01:27 Plt Count 380 10^3/cmm (157 -399) 04/14/25 01:27 MPV 9.0 fL (7.4-10.4) 04/14/25 01:27 Neut % (Auto) 85.0 % 04/14/25 01:27 Lymph % (Auto) 7.8 % 04/14/25 01:27 Wheeler % (Auto) 6.6 % 04/14/25 01:27 Eos % (Auto) 0.0 % 04/14/25 01:27 Baso % (Auto) 0.2 % 04/14/25 01:27 Neut # (Auto) 14.33 10^3/uL (1. 8-7.7) H 04/14/25 01:27 Lymph # (Auto) 1.3 10^3/uL (0.8- 4.8) 04/14/25 01:27 Wheeler # (Auto) 1.1 10^3/uL (0.2- 0.9) H 04/14/25 01:27 Eos # (Auto) 0.0 10^3/uL (0.0- 0.8) 04/14/25 01:27 Baso # (Auto) 0.0 10^3/uL (0.0- 0.1) 04/14/25 01:27 Nucleated RBC % (a uto) 0 % 04/14/25 01:27 Nucleated RBCs # 0.0 /100WBC 04/14/25 01:27 Sodium 140 mmol/L (136-1 45) 04/14/25 01:27 Potassium 3.1 mmol/L (3.5-5 .1) L 04/14/25 01:27 Chloride 105 mmol/L (98-10 7) 04/14/25 01:27 Carbon Dioxide 19 mmol/L (22-29) L 04/14/25 01:27 Anion Gap 19.1 (5-19) H 04/14/25 01:27 BUN 17 mg/dL (6-20) 04/14/25 01:27 Creatinine 1.0 mg/dL (0.5-0. 9) H 04/14/25 01:27 GFR Calculation 69.3 mL/min (90-1 30) L 04/14/25 01:27 Glucose 81 mg/dL (65-115) 04/14/25 01:27 Calculated Osmolal ity 291 mOsm/kg (285- 295) 04/14/25 01:27 Calcium 9.9 mg/dL (8.5-10 .5) 04/14/25 01:27 Total Bilirubin 0.7 mg/dL (0.15-1 .2) 04/14/25 01:27 AST 22 U/L (0-32) 04/14/25 01:27 ALT 22 U/L (0-33) 04/14/25 01:27 Alkaline Phosphata se 149 U/L (35-105) H 04/14/25 01:27 Total Protein 8.4 g/dL (6.6-8.7 ) 04/14/25 01:27 Albumin 4.6 g/dL (3.5-5.2 ) 04/14/25 01: Globulin 3.8 g/dL (1.3-4.6 ) 04/14/25 01: HCG, Qual Negative (Negati ve) 04/14/25 01:27 Urine Color Dark yellow (Yel low) A 04/14/25 09:29 Urine Appearance Clear (CLEAR) 04/14/25 09: Urine pH 5.0 (5-7) 04/14/25 09:29 Ur Specific Gravit y 1.031 (1.005-1.0 30) H 04/14/25 09:29 Urine Protein 1+ (Negative) A 04/14/25 09: Urine Glucose (UA) Negative (Normal ) 04/14/25 09: Urine Ketones 3+ (Negative) H 04/14/25 09:29 Urine Blood Negative (Negati ve) 04/14/25 09: Urine Nitrate Negative (Negati ve) 04/14/25 09: Urine Bilirubin Negative (Negati ve) 04/14/25 09:29 Urine Urobilinogen 1.0 mg/dL (Negati ve) 04/14/25 09:29 Ur Leukocyte Jesica ase Negative (Negati ve) 04/14/25 09:29 Urine RBC 0-4 /hpf (0-2) H 04/14/25 09:29 Urine WBC 0-4 /hpf (0-5) H 04/14/25 09:29 Ur Squamous Epith Cells None /hpf (0-5) 04/14/25 09: Amorphous Sediment Not Reportable 04/14/25 09: Urine Bacteria Trace /hpf (NONE) 04/14/25 09:29 Hyaline Casts 0-4 /lpf H 04/14/25 09:29 Fine Granular Cast s 0-4 /lpf H 04/14/25 09:29 Urine Mucus 2+ /hpf 04/14/25 09:29 Salicylates < 0.3 mg/dL (3-10 ) L 04/14/25 01:27 Urine Opiates Scre en Negative ng/mL (N egative) 04/14/25 09: Acetaminophen < 5.0 ug/mL (10-3 0) L 04/14/25 01:27 Ur Barbiturates Sc reen Negative ng/mL (N egative) 04/14/25 09:29 Ur Phencyclidine S crn Negative ng/mL (N egative) 04/14/25 09:29 Ur Amphetamines Sc reen Positive ng/mL (N egative) H 04/14/25 09:29 U Benzodiazepines Scrn Negative ng/mL (N egative) 04/14/25 09:29 Urine Cocaine Scre en Negative ng/mL (N egative) 04/14/25 09:29 U Marijuana (THC) Screen Positive ng/mL (N egative) H 04/14/25 09:29 Ethyl Alcohol < 10 mg/dL (0-10) 04/14/25 01:27 Influenza A (PCR) Negative (Negati ve) 04/14/25 09:29 Influenza Type B ( PCR) Negative (Negati ve) 04/14/25 09:29 RSV (PCR) Negative (Negati ve) 04/14/25 09:29 SARS-CoV-2 (PCR) Negative (Negati ve) 04/14/25 09:29 Vitals: Last Vital Signs Temp 98.7 F 04/23/25 06:00 Pulse 90 04/23/25 06:00 Resp 16 04/23/25 06:00 BP 114/70 04/23/25 06:00 Pulse Ox 100 04/23/25 06:00 O2 Del Method Room Air 04/23/25 06:00 Discharge Plan Discharge Patient Disposition: Home Condition: Stable Prescriptions: New fluoxetine 20 mg Capsule 20 mg PO DAILY 30 Days Qty: 30 1RF trazodone 50 mg Tablet 25 mg PO BEDTIME PRN (Reason: Insomnia) 30 Days Qty: 15 1RF Discharge Order = DC NOW: Discharge Order (Routine); Ordered 04/22/25 Ordered By: Ramírez Maloney Referrals: [facility] [Other, Chemical Dependency] - 04/23/25 9:00 am Referral Note: Discharge Diet: Usual diet Discharge Activity: Resume usual activity Patient Instructions: Fluoxetine (By mouth), Trazodone (By mouth), Depression (DC), Methamphetamine Use Disorder (DC), Anxiety (DC), Psychotic Disorder (DC), Suicide Prevention (DC), Opioid Safety, Patient Portal & Jacqueline Instructions Discharge Attestations NPU Time Spent in Discharge Care*: less than 30 min Specific Discharge Activities: Specific discharge activities: educating patient, discussing with classification case manager/social workers/dc planners and documenting/other paperwork Coding Level of Care Code Acute Code for Chg Fwd Diagnoses Acute psychosis F23 Drug-induced psychotic disorder with complication F19.959 Complication of substance-induced condition: with unspecified complication Methamphetamine use disorder, severe, dependence F15.20 Multiple lacerations T07.XXXA Open fracture of phalanx of right fifth toe, initial encounter S92.501B Encounter type: initial encounter
== END 2025-04-23 06:35 | disposition intermediate care facility (04) | DRG 897 ==
LOC: ER 16:07 → NP 16:42
PROVIDERS: Emergency Medicine; Admitting Provider Psychiatry & Neurology Psychiatry; Emergency Provider Family Medicine; Visit Provider Psychiatry & Neurology Psychiatry
DX: F15.259 Other stimulant dependence with stimulant-induced psychotic disorder, unspecified (principal); R45.851 Suicidal ideations; S92.511B Displaced fracture of proximal phalanx of right lesser toe(s), initial encounter for open fracture; W26.8XXA Contact with other sharp object(s), not elsewhere classified, initial encounter; F12.90 Cannabis use, unspecified, uncomplicated; S81.812A Laceration without foreign body, left lower leg, initial encounter; S81.811A Laceration without foreign body, right lower leg, initial encounter; F32.9 Major depressive disorder, single episode, unspecified; F41.1 Generalized anxiety disorder; E66.9 Obesity, unspecified; Z68.31 Body mass index [BMI] 31.0-31.9, adult; S61.412A Laceration without foreign body of left hand, initial encounter; S61.411A Laceration without foreign body of right hand, initial encounter; W19.XXXA Unspecified fall, initial encounter
CPT/HCPCS: 36415; 70450; 73630; 80053; 80306; 80307; 81001; 84703; 85025; 87637; 90471; 90714; 97150; 97165; 99285; J9999